=== PATIENT | female | born 1935 | race Caucasian/White ===

== ENCOUNTER 2018-05-23 06:30 | Day surgery (SDC) | payer MEDICARE, BC ==
[~2018-05-23] VITALS: Ht 167.6 cm; Wt 140.2 kg
[~2018-05-23 06:30] MED LIST: FURO40TA4 PO; POTA20TA19 PO; SENN-29 PO; ZAR2.5T PO; ZINC50TA4 PO
[2018-05-23 06:55] VITALS: BP 160/50
[2018-05-23] MEDS ORDERED: LISI-604 PO (07:09)
[2018-05-23] MEDS ORDERED: metroprolol PO (07:09)
[2018-05-23] MEDS ORDERED: ASPI-920 PO (07:09)
[2018-05-23] MEDS ORDERED: FURO40TA4 PO (07:09)
[2018-05-23] MEDS ORDERED: POTA20TA19 PO (07:09)
[2018-05-23] MEDS ORDERED: normal saline 1000ml 1,000 ML IV SCH (07:35)
[2018-05-23] MEDS ORDERED: LIDOcaine 1%/PF 5ML 10 MG/ML VIAL SQ STA (07:48)
[2018-05-23 07:53] LABS: BASOPHILS % (AUTO) 0.5 % (0-1); EOSINOPHILS # (AUTO) 0.1 X10'3 (0-0.9); HEMATOCRIT 27.4 % (35.0-45.0); HEMOGLOBIN 9.2 g/dl (12.0-16.0); LYMPHOCYTES # (AUTO) 1.1 X10'3 (1.1-4.8); LYMPHOCYTES % (AUTO) 24.6 % (21-51); MEAN CORPUSCULAR HEMOGLOBIN 32.8 PG (27.0-31.0); MEAN CORPUSCULAR HGB CONC 33.5 % (33.0-36.5); MEAN CORPUSCULAR VOLUME 97.8 FL (78-98); MEAN PLATELET VOLUME 8.9 FL (7.4-10.4); MONOCYTES # (AUTO) 0.5 X10'3 (0-0.9); NEUTROPHILS # (AUTO) 2.9 X10'3 (1.8-7.7); NEUTROPHILS % (AUTO) 60.9 % (42-75); PLATELET COUNT 159 X10'3 (140-440); RED CELL DISTRIBUTION WIDTH 14.1 % (11.5-14.5); WHITE BLOOD COUNT 4.7 X10'3 (4.5-11.0)
[2018-05-23] MEDS ORDERED: heparin 1,000 units/ml 10ml inj ICATH ONE (08:40)
[2018-05-23] MEDS ORDERED: fentaNYL/PF 50MCG/1 ML 2ML syringe IV PRN (08:40)
[2018-05-23] MEDS ORDERED: midazolam 2 mg/2 ml injection ONE (08:40)
[2018-05-23] MEDS ORDERED: LIDOcaine 1%/PF 5ML 10 MG/ML VIAL SQ ONE (08:40)
[2018-05-23] MEDS ORDERED: fentaNYL/PF 50MCG/1 ML 2ML syringe ONE (08:40)
[2018-05-23] MEDS ORDERED: midazolam 2 mg/2 ml injection IV PRN (08:40)
[2018-05-23] MEDS ORDERED: heparin 1,000unit/ml 10ml vial 10 ML ONE (09:09)
[2018-05-23] MEDS ORDERED: LIDOcaine 1%/PF 5ML 10 MG/ML VIAL ONE (09:10)
[2018-05-23 10:00] VITALS: BP 152/40
[2018-05-23 10:15] VITALS: BP 149/50
[2018-05-23 10:30] VITALS: BP 154/63
[2018-05-23 10:45] VITALS: BP 152/52
== END 2018-05-23 10:50 | disposition home or self-care (01) ==
LOC: SSTAY O 06:30
PROVIDERS: ATTEND Radiology Diagnostic Radiology
DX: I12.0 Hypertensive chronic kidney disease with stage 5 chronic kidney disease or end stage renal disease (principal); N18.5 Chronic kidney disease, stage 5; E66.9 Obesity, unspecified; G47.33 Obstructive sleep apnea (adult) (pediatric); Z99.2 Dependence on renal dialysis; Z90.89 Acquired absence of other organs; Z98.41 Cataract extraction status, right eye; Z98.42 Cataract extraction status, left eye; Z79.82 Long term (current) use of aspirin; Z79.899 Other long term (current) drug therapy; Z68.42 Body mass index [BMI] 45.0-49.9, adult
CPT/HCPCS: 36415; 36558; 76937; 77001; 85025; 99152; 99153; A9270; C1750; C1894; J1644; J2001; J2250; J3010; J7030; A4620

== ENCOUNTER 2021-12-11 07:04 | Day surgery (SDC) | payer MEDICARE, BC ==
[2021-12-11] VITALS (8 sets, daily range): BP systolic 179–195; BP diastolic 57–80
[~2021-12-11] VITALS: Ht 167.6 cm; Wt 108.0 kg
[~2021-12-11 07:04] MED LIST changes: +ASPI-920 PO; +LISI5TAB22 PO; +POTA-208 PO; -POTA20TA19 PO; -SENN-29 PO; -ZAR2.5T PO; -ZINC50TA4 PO; +metroprolol PO
[2021-12-11] MEDS ORDERED: LIDOcaine 1% 30ml preserv. free vial IJ STA (07:38)
[2021-12-11] MEDS ORDERED: albumin 25% 100mL bottle x 1 IV PRN (07:40)
[2021-12-11] MEDS ORDERED: LISI40TA13 PO (07:49)
[2021-12-11] MEDS ORDERED: FOLI0.8T7 PO (07:52)
[2021-12-11] MEDS ORDERED: lisinopril 20mg tablet PO SCH (09:00)
[2021-12-11 12:24] LABS: GLUCOSE,BODY FLUID 76 MG/DL; TOTAL PROTEIN,BODY FLUID 3.3 G/DL
[2021-12-11 12:58] LABS: LDH,BODY FLUID 91 U/L
[2021-12-11 13:19] LABS: BFAPPEAR CLOUDY
[2021-12-11 13:20] LABS: BF RBC COUNT 9675 /CU MM; BF WBC COUNT 1670 /CU MM (0-1000); BFCOLOR AMBER; BFVOLUME 58 ML
[2021-12-11 13:23] LABS: LYMPHOCYTES,BODY FLUID 97 %; MONOCYTES,BODY FLUID 2 %; NEUTROPHILS,BODY FLUID 1 %
== END 2021-12-11 10:30 | disposition home or self-care (01) ==
LOC: SSTAY O 07:04
PROVIDERS: ATTEND Preventive Medicine Aerospace Medicine
DX: J90 Pleural effusion, not elsewhere classified (principal); I12.0 Hypertensive chronic kidney disease with stage 5 chronic kidney disease or end stage renal disease; N18.6 End stage renal disease; E66.9 Obesity, unspecified; Z68.38 Body mass index [BMI] 38.0-38.9, adult; Z98.41 Cataract extraction status, right eye; Z98.42 Cataract extraction status, left eye; Z79.899 Other long term (current) drug therapy; Z99.2 Dependence on renal dialysis
CPT/HCPCS: 32555; 82945; 83615; 84157; 87070; 89051

== ENCOUNTER 2022-01-02 09:59 | Inpatient (IN) | payer MEDICARE, BC ==
[~2022-01-02] VITALS: Ht 162.6 cm; Wt 105.2 kg
[~2022-01-02 09:59] MED LIST changes: -ASPI-920 PO; +FOLI0.8T7 PO; +LISI40TA13 PO; -LISI5TAB22 PO; -metroprolol PO
[2022-01-02 12:21] LABS: BASOPHILS % (AUTO) 0.9 % (0-1); EOSINOPHILS # (AUTO) 0.2 X10'3 (0-0.9); EOSINOPHILS % (AUTO) 5.8 % (0-6); HEMATOCRIT 31.1 % (35.0-45.0); HEMOGLOBIN 10.2 g/dl (12.0-16.0); LYMPHOCYTES % (AUTO) 27.8 % (21-51); MEAN CORPUSCULAR HGB CONC 32.9 g/dL (33.0-36.5); MEAN CORPUSCULAR VOLUME 103.6 FL (78-98); MEAN PLATELET VOLUME 7.8 FL (7.4-10.4); MONOCYTES # (AUTO) 0.3 X10'3 (0-0.9); MONOCYTES % (AUTO) 9.7 % (2-12); NEUTROPHILS % (AUTO) 55.8 % (42-75); PLATELET COUNT 163 X10'3 (140-440); RED BLOOD COUNT 3.01 X10'6 (4.20-5.60); RED CELL DISTRIBUTION WIDTH 14.2 % (11.5-14.5); WHITE BLOOD COUNT 3.6 X10'3 (4.5-11.0)
[2022-01-02 12:39] LABS: ALANINE AMINOTRANSFERASE 13 U/L (12-78); ALBUMIN 2.4 G/DL (3.4-5.0); ALBUMIN/GLOBULIN RATIO 0.5 (1.1-1.5); ALKALINE PHOSPHATASE 88 IU/L (46-116); ANION GAP 10 (8-16); ASPARTATE AMINO TRANSFERASE 25 U/L (10-37); BILIRUBIN,TOTAL 0.4 MG/DL (0.1-1.0); BLOOD UREA NITROGEN 57 MG/DL (7-18); BUN/CREATININE RATIO 7.6 (6.6-38.0); CALCIUM 8.3 MG/DL (8.5-10.1); CHLORIDE 103 MMOL/L (99-107); CREATININE 7.46 MG/DL (0.40-0.90); GLUCOSE 127 MG/DL (70-104); POTASSIUM 4.5 MMOL/L (3.5-5.1); SODIUM 140 MMOL/L (135-145); TOTAL CARBON DIOXIDE 27.4 MMOL/L (24-32); TOTAL PROTEIN 6.9 G/DL (6.4-8.2); eGFR 5 ML/MIN
[2022-01-02] MEDS ORDERED: potassium Cl 20 mEq SR tablet PO PRN ×2 (13:55)
[2022-01-02] MEDS ORDERED: potassium CL 10mEq/100ml bag 100 ML IV PRN (13:55)
[2022-01-02] MEDS ORDERED: magnesium 2GM in 50ml NS 50 ML IV PRN (13:55)
[2022-01-02] MEDS ORDERED: magnesium Cl slow-release 64mg tablet PO PRN (13:55)
[2022-01-02] MEDS ORDERED: HYDROcodone/acetaminophen 10/325mg tab PO PRN (13:55)
[2022-01-02] MEDS ORDERED: mag hydrox/Alum hydrox/simeth 30ml oral suspension PO PRN (13:55)
[2022-01-02] MEDS ORDERED: PERFLUTREN PROTEIN-A MICROSPHR (Optison) 0.22 MG/ML 3ML VIAL IV ONE (13:55)
[2022-01-02] MEDS ORDERED: magnesium hydroxide 30ml (MOM) UD suspension PO PRN (13:55)
[2022-01-02] MEDS ORDERED: acetaminophen 325mg tablet PO PRN ×2 (13:55)
[2022-01-02] MEDS ORDERED: magnesium 4gm in 100ml NS 100 ML IV PRN (13:55)
[2022-01-02] MEDS ORDERED: ondansetron/PF 4mg/2ml inj IV PRN (13:55)
[2022-01-02] MEDS ORDERED: HYDROcodone/acetaminophen 5mg/325mg tablet PO PRN (13:55)
--- NOTE | 2022-01-02 14:05 | NUR ---
PT AND FAMILY UPDATED THAT PT GOING FOR THORACENTESIS SHORTLY. VERBALIZED UNDERSTANDING.
[2022-01-02 14:23] LABS: MAGNESIUM 2.3 MG/DL (1.5-2.4)
[2022-01-02 14:25] VITALS: BP 186/83
[2022-01-02 14:33] VITALS: BP 191/81
[2022-01-02 15:11] LABS: BFSOURCE RIGHT PLEURAL FLD; PLEURAL FLUID PH 7.322 (7.63-7.65)
[2022-01-02 15:39] LABS: BFAPPEAR HAZY; BFCOLOR YELLOW; EOSINOPHILS,BODY FLUID 1 %; LYMPHOCYTES,BODY FLUID 97 %; MONOCYTES,BODY FLUID 1 %; NEUTROPHILS,BODY FLUID 1 %
[2022-01-02 15:40] LABS: BF RBC COUNT 1925 /CU MM; BF WBC COUNT 600 /CU MM (0-1000); BFVOLUME 60 ML; GLUCOSE,BODY FLUID 94 MG/DL; LDH,BODY FLUID 68 U/L; TOTAL PROTEIN,BODY FLUID 2.3 G/DL
[2022-01-02] MEDS ORDERED: ERGO500054 PO (16:45)
[2022-01-02] MEDS ORDERED: FOLI0.8T7 PO (16:45)
[2022-01-02 18:00] VITALS: BP 186/82
[2022-01-02] MEDS: docusate sod 100mg capsule PO SCH (19:52)
[2022-01-02 19:53] VITALS: BP 180/86
[2022-01-02] MEDS: lisinopril 20mg tablet PO SCH (19:53)
[2022-01-02] MEDS: K and/or MAG REPLACEMENT MC SCH (19:59)
[2022-01-02] MEDS ORDERED: temazepam 15mg capsule PO PRN (21:00)
[2022-01-02 22:00] VITALS: BP 170/69
[2022-01-03] VITALS (8 sets, daily range): BP systolic 131–168; BP diastolic 49–74
[2022-01-03] MEDS ORDERED: hydrALAZINE 20mg/ml inj. IV PRN (00:10)
[2022-01-03] MEDS: folic acid/vitamin B complex w/vitamin C 0.8mg tablet PO SCH (07:02)
[2022-01-03] MEDS: docusate sod 100mg capsule PO SCH ×2 (07:03→19:41)
[2022-01-03] MEDS: lisinopril 20mg tablet PO SCH ×2 (07:03→19:42)
[2022-01-03] MEDS: K and/or MAG REPLACEMENT MC SCH ×2 (08:00→19:42)
[2022-01-03 08:04] LABS: BASOPHILS % (AUTO) 0.8 % (0-1); EOSINOPHILS # (AUTO) 0.2 X10'3 (0-0.9); EOSINOPHILS % (AUTO) 5.7 % (0-6); HEMATOCRIT 29.2 % (35.0-45.0); HEMOGLOBIN 9.8 g/dl (12.0-16.0); LYMPHOCYTES # (AUTO) 1.1 X10'3 (1.1-4.8); LYMPHOCYTES % (AUTO) 31.8 % (21-51); MEAN CORPUSCULAR HEMOGLOBIN 34.6 PG (27.0-31.0); MEAN CORPUSCULAR HGB CONC 33.7 g/dL (33.0-36.5); MEAN CORPUSCULAR VOLUME 102.8 FL (78-98); MEAN PLATELET VOLUME 8.1 FL (7.4-10.4); MONOCYTES # (AUTO) 0.4 X10'3 (0-0.9); MONOCYTES % (AUTO) 10.7 % (2-12); NEUTROPHILS # (AUTO) 1.8 X10'3 (1.8-7.7); PLATELET COUNT 162 X10'3 (140-440); RED BLOOD COUNT 2.84 X10'6 (4.20-5.60); WHITE BLOOD COUNT 3.5 X10'3 (4.5-11.0)
[2022-01-03 09:09] LABS: ALANINE AMINOTRANSFERASE 13 U/L (12-78); ALBUMIN 2.3 G/DL (3.4-5.0); ALBUMIN/GLOBULIN RATIO 0.6 (1.1-1.5); ALKALINE PHOSPHATASE 75 IU/L (46-116); ANION GAP 11 (8-16); ASPARTATE AMINO TRANSFERASE 20 U/L (10-37); BILIRUBIN,TOTAL 0.4 MG/DL (0.1-1.0); BLOOD UREA NITROGEN 58 MG/DL (7-18); BUN/CREATININE RATIO 7.4 (6.6-38.0); CALCIUM 7.8 MG/DL (8.5-10.1); CHLORIDE 104 MMOL/L (99-107); CREATININE 7.88 MG/DL (0.40-0.90); GLUCOSE 95 MG/DL (70-104); MAGNESIUM 2.3 MG/DL (1.5-2.4); POTASSIUM 4.5 MMOL/L (3.5-5.1); SODIUM 140 MMOL/L (135-145); TOTAL CARBON DIOXIDE 25.1 MMOL/L (24-32); TOTAL PROTEIN 5.9 G/DL (6.4-8.2); eGFR 5 ML/MIN
[2022-01-03] MEDS ORDERED: EPOETIN ALFA-EPBX 20,000 UNIT/ML 1 ML MDV IV ONE (10:20)
[2022-01-03] MEDS ORDERED: albumin (human) 25% 100ml IV 100 ML IV PRN (10:20)
[2022-01-03] MEDS ORDERED: heparin 1,000 units/ml 10ml inj IV ONE (10:20)
[2022-01-03] MEDS ORDERED: LIDOcaine 1% (10mg/ml) 2ml vial SQ ONE (10:20)
[2022-01-03] MEDS ORDERED: heparin 1,000unit/ml 10ml vial 10 ML IV ONE (10:20)
[2022-01-03] MEDS ORDERED: iohexol 300mg/ml 100ml inj. ONE (10:25)
--- NOTE | 2022-01-03 12:02 | NUR ---
Malnutrition consult: Pt reports 24-33 lb wt loss with decreased appetite per malnutrition risk screen with RN. Current scaled wt is -2.8 kg from scaled wt 12/11 per EMR. Per H&P pt with thoracentesis about two weeks ago and pt s/p thoracentesis this admit 01/02 with 500 mL fluid removed per report. Given thoracentesis and ESRD on HD weight is expected to fluctuate d/t changes in fluid status. Pt currently eating well on renal diet documented with 75-100% PO intake. Pt with no documented significant decrease in muscle strength though with BLE 2+ edema. Pt appears well developed well nourished per H&P. Pt currently lacks a minimum of two criteria for malnutrition. Will continue to follow and further monitor qualifying criteria for malnutrition. Addendum: 01/03/22 at [address] Amended: Links added.
--- NOTE | 2022-01-03 18:15 | NUR ---
Problems reprioritized. Patient report given to Lashon MEDINA, questions answered & plan of care reviewed with Lashon MEDINA.
[2022-01-03] MEDS: furosemide 20 MG/2 ML vial IV SCH (19:41)
[2022-01-04 02:00] VITALS: BP 140/74
[2022-01-04 06:00] VITALS: BP 136/58
[2022-01-04 07:32] LABS: BASOPHILS % (AUTO) 0.7 % (0-1); EOSINOPHILS # (AUTO) 0.2 X10'3 (0-0.9); EOSINOPHILS % (AUTO) 4.4 % (0-6); HEMATOCRIT 30.6 % (35.0-45.0); HEMOGLOBIN 10.3 g/dl (12.0-16.0); LYMPHOCYTES # (AUTO) 1.3 X10'3 (1.1-4.8); MEAN CORPUSCULAR HEMOGLOBIN 34.5 PG (27.0-31.0); MEAN CORPUSCULAR HGB CONC 33.6 g/dL (33.0-36.5); MEAN CORPUSCULAR VOLUME 102.6 FL (78-98); MEAN PLATELET VOLUME 8.1 FL (7.4-10.4); MONOCYTES # (AUTO) 0.5 X10'3 (0-0.9); NEUTROPHILS # (AUTO) 1.7 X10'3 (1.8-7.7); NEUTROPHILS % (AUTO) 46.9 % (42-75); PLATELET COUNT 165 X10'3 (140-440); RED BLOOD COUNT 2.99 X10'6 (4.20-5.60); RED CELL DISTRIBUTION WIDTH 14.1 % (11.5-14.5); WHITE BLOOD COUNT 3.7 X10'3 (4.5-11.0)
[2022-01-04 07:58] LABS: ALANINE AMINOTRANSFERASE 11 U/L (12-78); ALBUMIN 2.2 G/DL (3.4-5.0); ALBUMIN/GLOBULIN RATIO 0.6 (1.1-1.5); ALKALINE PHOSPHATASE 76 IU/L (46-116); ANION GAP 6 (8-16); ASPARTATE AMINO TRANSFERASE 24 U/L (10-37); BILIRUBIN,TOTAL 0.5 MG/DL (0.1-1.0); BLOOD UREA NITROGEN 32 MG/DL (7-18); BUN/CREATININE RATIO 6.1 (6.6-38.0); CALCIUM 7.4 MG/DL (8.5-10.1); CHLORIDE 103 MMOL/L (99-107); CREATININE 5.27 MG/DL (0.40-0.90); GLUCOSE 92 MG/DL (70-104); MAGNESIUM 2.1 MG/DL (1.5-2.4); POTASSIUM 4.5 MMOL/L (3.5-5.1); SODIUM 139 MMOL/L (135-145); TOTAL CARBON DIOXIDE 30.4 MMOL/L (24-32); TOTAL PROTEIN 6.1 G/DL (6.4-8.2); eGFR 8 ML/MIN
[2022-01-04] MEDS: docusate sod 100mg capsule PO SCH (08:00)
[2022-01-04] MEDS: folic acid/vitamin B complex w/vitamin C 0.8mg tablet PO SCH (10:07)
[2022-01-04 10:08] VITALS: BP_SYST 136
[2022-01-04] MEDS: lisinopril 20mg tablet PO SCH (10:08)
[2022-01-04] MEDS: furosemide 20 MG/2 ML vial IV SCH (10:08)
[2022-01-04] MEDS ORDERED: FURO-150 PO (11:33)
[2022-01-04] MEDS ORDERED: ergocalciferol (vit D2) capsule 50,000 UNITS (1,250mcg) CAPSULE PO SCH (17:55)
== END 2022-01-04 15:26 | disposition home or self-care (01) | DRG 186 ==
LOC: ER 10:00 → ED HOLD 13:57 → EDBEDREQ 15:16 → PCU 3S 17:25
PROVIDERS: ADMIT Family Medicine; ATTEND Family Medicine
PROC: 0W993ZZ Drainage of Right Pleural Cavity, Percutaneous Approach (ICD-10-PCS; principal; 2022-01-02)
PROC: 5A1D70Z Performance of Urinary Filtration, Intermittent, Less than 6 Hours Per Day (ICD-10-PCS; 2022-01-03)
PROC: BW251ZZ Computerized Tomography (CT Scan) of Chest, Abdomen and Pelvis using Low Osmolar Contrast (ICD-10-PCS; 2022-01-03)
DX: J91.8 Pleural effusion in other conditions classified elsewhere (principal); N18.6 End stage renal disease; I13.2 Hypertensive heart and chronic kidney disease with heart failure and with stage 5 chronic kidney disease, or end stage renal disease; D63.8 Anemia in other chronic diseases classified elsewhere; D72.819 Decreased white blood cell count, unspecified; I27.29 Other secondary pulmonary hypertension; I35.0 Nonrheumatic aortic (valve) stenosis; I50.810 Right heart failure, unspecified; R06.03 Acute respiratory distress; R63.4 Abnormal weight loss; J44.9 Chronic obstructive pulmonary disease, unspecified; K72.10 Chronic hepatic failure without coma; N83.201 Unspecified ovarian cyst, right side; Z95.0 Presence of cardiac pacemaker; Z99.2 Dependence on renal dialysis; Z99.3 Dependence on wheelchair; Z99.81 Dependence on supplemental oxygen; Z68.39 Body mass index [BMI] 39.0-39.9, adult
CPT/HCPCS: 32555; 36415; 71045; 71260; 74177; 80053; 82945; 83615; 83735; 83880; 83986; 84145; 84157; 84484; 85025; 85610; 87070; 87075; 87081; 87102; 88108; 88305; 88341; 88342; 89051; 93005; 93306; 97116; 97162; 99285; G0257; G0378; J1644; J1940; Q4081; Q9967

== ENCOUNTER 2022-02-05 06:59 | Day surgery (SDC) | payer MEDICARE, BC ==
[~2022-02-05] VITALS: Ht 157.5 cm; Wt 103.0 kg
[~2022-02-05 06:59] MED LIST changes: +ERGO500054 PO; +FURO-150 PO; -FURO40TA4 PO; +LIDOcaine 1%/PF 5ML 10 MG/ML VIAL IJ ONE; -POTA-208 PO
[2022-02-05] MEDS ORDERED: albumin 25% 100mL bottle x 1 IV PRN (07:20)
[2022-02-05] MEDS ORDERED: FURO20TA4 PO (07:27)
[2022-02-05] MEDS ORDERED: DILT-36 PO (07:27)
[2022-02-05] MEDS ORDERED: APIX2.5T PO (07:27)
[2022-02-05 07:37] VITALS: BP 142/53
[2022-02-05 08:45] VITALS: BP 167/48
[2022-02-05 08:55] VITALS: BP 151/53
[2022-02-05 09:05] VITALS: BP 147/52
[2022-02-05 09:15] VITALS: BP 147/52
[2022-02-05 09:30] VITALS: BP 161/66
== END 2022-02-05 09:40 | disposition home or self-care (01) ==
LOC: SSTAY O 06:59
PROVIDERS: ATTEND Radiology Vascular & Interventional Radiology
DX: J90 Pleural effusion, not elsewhere classified (principal); N18.6 End stage renal disease; J44.9 Chronic obstructive pulmonary disease, unspecified; I50.9 Heart failure, unspecified; Z99.2 Dependence on renal dialysis; Z95.0 Presence of cardiac pacemaker; Z79.01 Long term (current) use of anticoagulants; Z79.899 Other long term (current) drug therapy
CPT/HCPCS: 32555

== ENCOUNTER 2022-06-06 08:43 | Inpatient (IN) | payer MEDICARE, BC ==
[~2022-06-06] VITALS: Ht 167.6 cm; Wt 93.2 kg
[~2022-06-06 08:43] MED LIST changes: +APIX2.5T PO; +DILT-36 PO; -FURO-150 PO; +FURO20TA4 PO; -LIDOcaine 1%/PF 5ML 10 MG/ML VIAL IJ ONE
[2022-06-06] MEDS ORDERED: furosemide 40mg/4ml inj IV ONE (08:50)
[2022-06-06] MEDS ORDERED: methylPREDNISolone sod succ 125mg/2ml vial IV ONE (08:50)
[2022-06-06] MEDS ORDERED: albuterol 2.5 MG/3 ML nebule NEB ONE (08:50)
--- NOTE | 2022-06-06 08:55 | NUR ---
PT PLACED ON BIPAP 12/5 AND 30%
[2022-06-06 09:10] LABS: BASOPHILS % (AUTO) 0.5 % (0-1); EOSINOPHILS % (AUTO) 0.4 % (0-6); HEMATOCRIT 34.7 % (35.0-45.0); HEMOGLOBIN 11.4 g/dl (12.0-16.0); LYMPHOCYTES # (AUTO) 1.3 X10'3 (1.1-4.8); LYMPHOCYTES % (AUTO) 18.5 % (21-51); MEAN CORPUSCULAR HEMOGLOBIN 34.3 PG (27.0-31.0); MEAN CORPUSCULAR HGB CONC 32.7 g/dL (33.0-36.5); MEAN CORPUSCULAR VOLUME 104.9 FL (78-98); MEAN PLATELET VOLUME 7.8 FL (7.4-10.4); MONOCYTES # (AUTO) 0.6 X10'3 (0-0.9); MONOCYTES % (AUTO) 9.1 % (2-12); NEUTROPHILS % (AUTO) 71.5 % (42-75); PLATELET COUNT 228 X10'3 (140-440); RED BLOOD COUNT 3.31 X10'6 (4.20-5.60); RED CELL DISTRIBUTION WIDTH 14.3 % (11.5-14.5)
[2022-06-06 09:33] LABS: ALANINE AMINOTRANSFERASE 16 U/L (12-78); ALBUMIN 2.8 G/DL (3.4-5.0); ALBUMIN/GLOBULIN RATIO 0.6 (1.1-1.5); ALKALINE PHOSPHATASE 105 IU/L (46-116); ANION GAP 13 (8-16); ASPARTATE AMINO TRANSFERASE 20 U/L (10-37); BILIRUBIN,TOTAL 0.9 MG/DL (0.1-1.0); BLOOD UREA NITROGEN 80 MG/DL (7-18); BUN/CREATININE RATIO 8.5 (6.6-38.0); CALCIUM 8.9 MG/DL (8.5-10.1); CHLORIDE 101 MMOL/L (99-107); CREATININE 9.42 MG/DL (0.40-0.90); GLUCOSE 125 MG/DL (70-104); SODIUM 134 MMOL/L (135-145); TOTAL CARBON DIOXIDE 20.4 MMOL/L (24-32); TOTAL PROTEIN 7.8 G/DL (6.4-8.2); eGFR 4 ML/MIN
[2022-06-06 09:35] LABS: POTASSIUM 6.1 MMOL/L (3.5-5.1)
[2022-06-06 09:43] LABS: ABG BASE EXCESS -5.5 mmol/L (-2.0-2.0); ABG HCO3 20.6 mmol/L (22.0-26.0); ABG OXYGEN SATURATION 96.6 % (94-97); ABG PCO2 (T) 42.5 mmHg (32.0-45.0); ABG PO2 (T) 95.2 mmHg (75.0-100.0); FCOHb 0.6 % (0.0-3.9); FMetHb 0.3 % (0.0-1.5); FO2Hb 95.7 % (94-97); RESPIRATORY RATE 4 b/min; TOTAL HEMOGLOBIN 11.7 G/dl (12.0-16.0)
[2022-06-06] MEDS ORDERED: nitroGLYCERIN 1gm ointment UD TP ONE (09:55)
[2022-06-06 11:08] LABS: CLARITY,URINE SLIGHTLY CLOUDY (Clear); COLOR,URINE YELLOW (Yellow); GLUCOSE, URINE 100 mg/dl (Neg); KETONES,URINE TRACE mg/dl (Neg); LEUKOCYTE ESTERASE ,URINE SMALL (Neg); NITRITES, URINE NEGATIVE (Neg); OCCULT BLOOD,URINE MODERATE (Neg); PH,URINE 6.5 (4.8-8.0); PROTEIN,URINE 100 mg/dl (Neg); UROBILINOGEN,URINE 0.2 E.U/dL (0.2-1.0)
[2022-06-06 11:12] LABS: UA COLLECTION TYPE STRAIGHT CATH
[2022-06-06 11:14] LABS: BACTERIA,URINE FEW /HPF (Neg); MUCUS STRANDS FEW /LPF (Neg); RENAL CELLS, URINE MODERATE /HPF; SQUAMOUS EPITHELIAL CELL,UR MODERATE /LPF (FEW); TRANSITIONAL EPI CELLS,URINE FEW /HPF
[2022-06-06] MEDS ORDERED: LIDOcaine 1%/PF 5ML 10 MG/ML VIAL SQ ONE ×2 (12:35→12:45)
[2022-06-06] MEDS ORDERED: heparin 1,000 units/ml 10ml inj IV ONE (13:25)
[2022-06-06] MEDS ORDERED: heparin 1,000unit/ml 10ml vial 10 ML IV ONE (13:25)
[2022-06-06] MEDS ORDERED: ipratropium/albuterol 3ml nebule NEB PRN ×2 (13:45→13:50)
[2022-06-06] MEDS ORDERED: LIDOcaine 1% 30ml preserv. free vial IJ ONE (13:50)
[2022-06-06] MEDS ORDERED: ondansetron/PF 4mg/2ml inj IV PRN (13:50)
[2022-06-06] MEDS ORDERED: magnesium Cl slow-release 64mg tablet PO PRN (13:50)
[2022-06-06] MEDS ORDERED: HYDROcodone/acetaminophen 10/325mg tab PO PRN (13:50)
[2022-06-06] MEDS ORDERED: acetaminophen 325mg tablet PO PRN ×2 (13:50)
[2022-06-06] MEDS ORDERED: diphenhydrAMINE 25mg capsule PO PRN (13:50)
[2022-06-06] MEDS ORDERED: magnesium 4gm in 100ml NS 100 ML IV PRN (13:50)
[2022-06-06] MEDS ORDERED: mag hydrox/Alum hydrox/simeth 30ml oral suspension PO PRN (13:50)
[2022-06-06] MEDS ORDERED: magnesium 2GM in 50ml NS 50 ML IV PRN (13:50)
[2022-06-06] MEDS ORDERED: POTASSIUM BICARB 20meq eff tab 20 MEQ TABLET.EFF PO PRN ×2 (13:50)
[2022-06-06] MEDS ORDERED: HYDROcodone/acetaminophen 5mg/325mg tablet PO PRN (13:50)
[2022-06-06] MEDS ORDERED: LIDOcaine 1% W/epiNEPHrine 1:100,000 20ml vial IJ ONE (13:50)
[2022-06-06] MEDS ORDERED: morphine 2 MG/ML inj. syringe IV PRN ×2 (13:50)
[2022-06-06] MEDS ORDERED: potassium CL 10mEq/100ml bag 100 ML IV PRN (13:50)
[2022-06-06] MEDS ORDERED: bisacodyl 10mg suppository rectal RC PRN (13:50)
[2022-06-06] MEDS ORDERED: magnesium hydroxide 30ml (MOM) UD suspension PO PRN (13:50)
[2022-06-06] MEDS: methylPREDNISolone sod succ 125mg/2ml vial IV SCH ×2 (14:00→21:56)
[2022-06-06 14:11] LABS: HEMOGLOBIN A1C 5.1 % (4.5-6.2)
--- NOTE | 2022-06-06 14:23 | NUR ---
THORACENTESIS COMPLETE BY DR JACKSON AT BEDSIDE VIA ULTRASOUND. 300ML REMOVED CLEAR BONG FLUID. SAMPLE SENT TO LAB.
[2022-06-06 14:45] LABS: BFSOURCE RIGHT PLEURAL FLD; PLEURAL FLUID PH 7.642 (7.63-7.65)
[2022-06-06 14:50] LABS: GLUCOSE,BODY FLUID 99 MG/DL; LDH,BODY FLUID 66 U/L
[2022-06-06 14:51] LABS: TOTAL PROTEIN,BODY FLUID < 2.0 G/DL
[2022-06-06 15:22] LABS: BFAPPEAR HAZY; LYMPHOCYTES,BODY FLUID 96 %; MONOCYTES,BODY FLUID 3 %; NEUTROPHILS,BODY FLUID 1 %
[2022-06-06 15:23] LABS: BF RBC COUNT 1153 /CU MM; BF WBC COUNT 163 /CU MM (0-1000); BFCOLOR YELLOW; BFVOLUME 8.5 ML
[2022-06-06] MEDS ORDERED: LIDOcaine 1% (10mg/ml) 2ml vial SQ ONE (15:40)
[2022-06-06] MEDS: ipratropium/albuterol 3ml nebule NEB SCH ×2 (15:58→19:21)
--- NOTE | 2022-06-06 16:20 | NUR ---
Patient in room ED 6. I have received report from Srinivas MEDINA and had the opportunity to ask questions and awaiting patients arrival
--- NOTE | 2022-06-06 17:23 | NUR ---
patient arrived on the floor and dialysis was initiated straight away. patient is on 20L and 30% high flow. patient appears stable at this time
[2022-06-06 18:30] VITALS: BP 134/44
--- NOTE | 2022-06-06 18:57 | NUR ---
Problems reprioritized. Patient report given, questions answered & plan of care reviewed with Pat RN.
[2022-06-06] MEDS: K and/or MAG REPLACEMENT MC SCH (20:00)
[2022-06-06] MEDS: furosemide 10 MG/1 ML 10ml inj IV SCH (21:57)
[2022-06-06] MEDS: docusate sod 100mg capsule PO SCH (21:58)
[2022-06-06] MEDS: apixaban 2.5mg tablet PO SCH (21:59)
[2022-06-06 22:00] VITALS: BP 110/42
[2022-06-06] MEDS: CefTRIAXone/D5W-Rocephin 1gm 50 ML IV SCH (22:32)
[2022-06-06] MEDS: azithromycin/NS 500mg/250ml 250 ML IV SCH (23:23)
[2022-06-07 02:00] VITALS: BP 118/48
[2022-06-07] MEDS: methylPREDNISolone sod succ 125mg/2ml vial IV SCH ×4 (03:00→20:25)
[2022-06-07 06:00] VITALS: BP_SYST 115; BP_SYST 120; BP_DIAS 42; BP_DIAS 45
--- NOTE | 2022-06-07 06:45 | NUR ---
Patient in room PCU 3013B. I have received report from ADAM CUEVA and had the opportunity to ask questions and assume patient care. Addendum: 06/07/22 at 1905 by Judy Salinas RN SENIA MEDINA
--- NOTE | 2022-06-07 06:45 | NUR ---
Patient in room PCU 3013A. I have received report from ADAM PETERSON and had the opportunity to ask questions and assume patient care.
[2022-06-07] MEDS: K and/or MAG REPLACEMENT MC SCH ×2 (08:00→20:00)
[2022-06-07] MEDS: ipratropium/albuterol 3ml nebule NEB SCH ×4 (08:11→19:14)
[2022-06-07 08:37] LABS: BASOPHILS % (AUTO) 0.1 % (0-1); EOSINOPHILS % (AUTO) 0 % (0-6); HEMATOCRIT 30.3 % (35.0-45.0); LYMPHOCYTES # (AUTO) 0.2 X10'3 (1.1-4.8); LYMPHOCYTES % (AUTO) 5.2 % (21-51); MEAN CORPUSCULAR HEMOGLOBIN 34.2 PG (27.0-31.0); MEAN CORPUSCULAR HGB CONC 33.1 g/dL (33.0-36.5); MEAN CORPUSCULAR VOLUME 103.4 FL (78-98); MEAN PLATELET VOLUME 8.2 FL (7.4-10.4); MONOCYTES # (AUTO) 0.1 X10'3 (0-0.9); MONOCYTES % (AUTO) 3.1 % (2-12); NEUTROPHILS # (AUTO) 4.2 X10'3 (1.8-7.7); NEUTROPHILS % (AUTO) 91.6 % (42-75); PLATELET COUNT 197 X10'3 (140-440); RED BLOOD COUNT 2.93 X10'6 (4.20-5.60); RED CELL DISTRIBUTION WIDTH 14.4 % (11.5-14.5); WHITE BLOOD COUNT 4.6 X10'3 (4.5-11.0)
[2022-06-07 08:52] LABS: ALANINE AMINOTRANSFERASE 14 U/L (12-78); ALBUMIN 2.4 G/DL (3.4-5.0); ALBUMIN/GLOBULIN RATIO 0.5 (1.1-1.5); ALKALINE PHOSPHATASE 76 IU/L (46-116); ANION GAP 10 (8-16); ASPARTATE AMINO TRANSFERASE 19 U/L (10-37); BILIRUBIN,TOTAL 0.5 MG/DL (0.1-1.0); BLOOD UREA NITROGEN 42 MG/DL (7-18); BUN/CREATININE RATIO 7.9 (6.6-38.0); CALCIUM 8.6 MG/DL (8.5-10.1); CHLORIDE 102 MMOL/L (99-107); CHOL/HDL RATIO 2.5 (0.00-4.99); CHOLESTEROL 123 MG/DL (0-200); CREATININE 5.35 MG/DL (0.40-0.90); GLUCOSE 148 MG/DL (70-104); HDL CHOLESTEROL 49 MG/DL (35-60); LDL CHOLESTEROL 63 MG/DL (50-100); MAGNESIUM 2.2 MG/DL (1.5-2.4); PHOSPHORUS 5.4 MG/DL (2.3-4.5); POTASSIUM 4.9 MMOL/L (3.5-5.1); SODIUM 140 MMOL/L (135-145); TOTAL CARBON DIOXIDE 28.1 MMOL/L (24-32); TOTAL PROTEIN 7.3 G/DL (6.4-8.2); TRIGLYCERIDES 33 MG/DL (20-135); eGFR 8 ML/MIN
--- NOTE | 2022-06-07 08:59 | NUR ---
POSITIVE BLOOD CULTURE: GRAM POSITIVE COCCI IN CLUSTERS IN ANAEROBIC & AEROBIC BOTTLES DRAWN 06/06 FROM IV START @ 2256. DR PADGETT AWAITING CALL BACK
[2022-06-07] MEDS: docusate sod 100mg capsule PO SCH ×2 (10:41→20:25)
[2022-06-07] MEDS: apixaban 2.5mg tablet PO SCH ×2 (10:41→20:25)
[2022-06-07] MEDS: furosemide 10 MG/1 ML 10ml inj IV SCH ×2 (10:48→20:24)
[2022-06-07 11:00] VITALS: BP 125/43
[2022-06-07] MEDS ORDERED: normal saline 500ml IV soln 500 ML IV SCH (12:20)
[2022-06-07] MEDS: CefTRIAXone/D5W-Rocephin 1gm 50 ML IV SCH (12:22)
[2022-06-07] MEDS ORDERED: vancomycin/NS 1 GM ADD-VANTAGE 250 ML IV PRN (12:45)
[2022-06-07] MEDS: azithromycin/NS 500mg/250ml 250 ML IV SCH (13:56)
[2022-06-07 15:00] VITALS: BP 131/42
[2022-06-07 18:00] VITALS: BP 122/49
--- NOTE | 2022-06-07 18:10 | NUR ---
Patient in room PCU 3013. I have received report from Judy and had the opportunity to ask questions and assume patient care.
--- NOTE | 2022-06-07 19:04 | NUR ---
Problems reprioritized. Patient report given, questions answered & plan of care reviewed with ADAM CUEVA.
[2022-06-07 22:00] VITALS: BP 126/49
[2022-06-08 02:00] VITALS: BP 124/47
[2022-06-08] MEDS: methylPREDNISolone sod succ 125mg/2ml vial IV SCH ×3 (02:17→09:31)
[2022-06-08] MEDS: VANCOMYCIN LEVEL IV SCH (03:00)
[2022-06-08 06:00] VITALS: BP 126/53
--- NOTE | 2022-06-08 06:59 | NUR ---
Patient in room PCU 3013. I have received report from SANDRA MEDINA and had the opportunity to ask questions and assume patient care.
[2022-06-08] MEDS ORDERED: heparin 1,000 units/ml 10ml inj IV ONE (08:00)
[2022-06-08] MEDS ORDERED: heparin 1,000unit/ml 10ml vial 10 ML IV ONE (08:00)
[2022-06-08] MEDS: azithromycin/NS 500mg/250ml 250 ML IV SCH ×2 (08:00→13:57)
[2022-06-08] MEDS: K and/or MAG REPLACEMENT MC SCH (08:00)
[2022-06-08] MEDS: ipratropium/albuterol 3ml nebule NEB SCH ×2 (08:12→11:27)
--- NOTE | 2022-06-08 08:22 | NUR ---
Patient in room PCU 3013. I have received report from JANELLE FONG and had the opportunity to ask questions and assume patient care.
--- NOTE | 2022-06-08 08:27 | NUR ---
Problems reprioritized. Patient report given, questions answered & plan of care reviewed with LEONARDO MEDINA.
[2022-06-08] MEDS: apixaban 2.5mg tablet PO SCH (09:32)
[2022-06-08] MEDS: docusate sod 100mg capsule PO SCH (09:32)
[2022-06-08] MEDS: furosemide 10 MG/1 ML 10ml inj IV SCH (09:43)
--- NOTE | 2022-06-08 09:52 | NUR ---
AM FUROSEMIDE AND AZITHROMYCIN HELD D/T DIALYSIS.
[2022-06-08 10:19] LABS: BASOPHILS % (AUTO) 0.6 % (0-1); EOSINOPHILS % (AUTO) 0.1 % (0-6); HEMATOCRIT 31.6 % (35.0-45.0); HEMOGLOBIN 10.5 g/dl (12.0-16.0); LYMPHOCYTES # (AUTO) 0.2 X10'3 (1.1-4.8); LYMPHOCYTES % (AUTO) 3.5 % (21-51); MEAN CORPUSCULAR HGB CONC 33.1 g/dL (33.0-36.5); MEAN CORPUSCULAR VOLUME 102.6 FL (78-98); MEAN PLATELET VOLUME 8.4 FL (7.4-10.4); MONOCYTES # (AUTO) 0.1 X10'3 (0-0.9); MONOCYTES % (AUTO) 2.2 % (2-12); NEUTROPHILS # (AUTO) 5.8 X10'3 (1.8-7.7); NEUTROPHILS % (AUTO) 93.6 % (42-75); PLATELET COUNT 202 X10'3 (140-440); RED BLOOD COUNT 3.08 X10'6 (4.20-5.60); RED CELL DISTRIBUTION WIDTH 13.9 % (11.5-14.5); WHITE BLOOD COUNT 6.2 X10'3 (4.5-11.0)
[2022-06-08 10:25] LABS: ALANINE AMINOTRANSFERASE 15 U/L (12-78); ALBUMIN 2.5 G/DL (3.4-5.0); ALBUMIN/GLOBULIN RATIO 0.5 (1.1-1.5); ALKALINE PHOSPHATASE 78 IU/L (46-116); ANION GAP 11 (8-16); ASPARTATE AMINO TRANSFERASE 13 U/L (10-37); BILIRUBIN,TOTAL 0.4 MG/DL (0.1-1.0); BLOOD UREA NITROGEN 72 MG/DL (7-18); BUN/CREATININE RATIO 10.9 (6.6-38.0); CALCIUM 8.2 MG/DL (8.5-10.1); CHLORIDE 98 MMOL/L (99-107); CREATININE 6.61 MG/DL (0.40-0.90); GLUCOSE 221 MG/DL (70-104); MAGNESIUM 2.3 MG/DL (1.5-2.4); PHOSPHORUS 6.6 MG/DL (2.3-4.5); POTASSIUM 4.8 MMOL/L (3.5-5.1); SODIUM 133 MMOL/L (135-145); TOTAL CARBON DIOXIDE 24.3 MMOL/L (24-32); TOTAL PROTEIN 7.4 G/DL (6.4-8.2); eGFR 6 ML/MIN
[2022-06-08 11:00] VITALS: BP 149/67
[2022-06-08] MEDS ORDERED: vancomycin/NS 1 GM ADD-VANTAGE 250 ML IV STA (11:01)
[2022-06-08] MEDS ORDERED: vancomycin 1000 MG in NS 250ml X 1 ER IV ONE (11:15)
[2022-06-08] MEDS ORDERED: ALBU8.5H17 INH (13:13)
[2022-06-08] MEDS ORDERED: LACT1CAP26 PO (13:13)
--- NOTE | 2022-06-08 13:52 | NUR ---
PER DR OLMEDO, PT NEEDS AZITHROMYCIN DOSE THAT WAS DUE THIS AM PRIOR TO DISCHARGE, WILL ADMINISTER NOW
== END 2022-06-08 16:10 | disposition home health service (06) | DRG 640 ==
LOC: ER 08:43 → ED HOLD 13:52 → CANBEDREQ 13:59 → PCU 3S 16:38
PROVIDERS: ADMIT Family Medicine; ATTEND Family Medicine
PROC: 0W993ZZ Drainage of Right Pleural Cavity, Percutaneous Approach (ICD-10-PCS; principal; 2022-06-06)
PROC: 5A1D70Z Performance of Urinary Filtration, Intermittent, Less than 6 Hours Per Day (ICD-10-PCS; 2022-06-06)
PROC: 5A09357 Assistance with Respiratory Ventilation, Less than 24 Consecutive Hours, Continuous Positive Airway Pressure (ICD-10-PCS; 2022-06-06)
PROC: 5A0935A Assistance with Respiratory Ventilation, Less than 24 Consecutive Hours, High Flow/Velocity Cannula (ICD-10-PCS; 2022-06-06)
PROC: 5A09357 Assistance with Respiratory Ventilation, Less than 24 Consecutive Hours, Continuous Positive Airway Pressure (ICD-10-PCS; 2022-06-07)
PROC: 5A1D70Z Performance of Urinary Filtration, Intermittent, Less than 6 Hours Per Day (ICD-10-PCS; 2022-06-08)
DX: E87.5 Hyperkalemia (principal); I21.A1 Myocardial infarction type 2; J96.20 Acute and chronic respiratory failure, unspecified whether with hypoxia or hypercapnia; N18.6 End stage renal disease; I13.2 Hypertensive heart and chronic kidney disease with heart failure and with stage 5 chronic kidney disease, or end stage renal disease; J44.1 Chronic obstructive pulmonary disease with (acute) exacerbation; J91.8 Pleural effusion in other conditions classified elsewhere; E87.2 Acidosis; Z20.822 Contact with and (suspected) exposure to COVID-19; Z66 Do not resuscitate; I50.9 Heart failure, unspecified; I48.91 Unspecified atrial fibrillation; Z99.2 Dependence on renal dialysis; Z79.01 Long term (current) use of anticoagulants; Z95.0 Presence of cardiac pacemaker
CPT/HCPCS: 36415; 36600; 71045; 80053; 80061; 80202; 81001; 82803; 82945; 83036; 83605; 83615; 83735; 83880; 83986; 84100; 84157; 84484; 85018; 85025; 87040; 87070; 87075; 87077; 87088; 87186; 87502; 87503; 87635; 89051; 94640; 94660; 94760; 96374; 96375; 99285; A4353; A6402; A6449; C9803; G0257; G0378; J0456; J0696; J1644; J1940; J2930; J3370; J7030; J7040

== ENCOUNTER 2022-07-15 04:44 | Inpatient (IN) | payer MEDICARE, BC ==
[~2022-07-15] VITALS: Ht 167.6 cm; Wt 108.8 kg
[~2022-07-15 04:44] MED LIST changes: +ALBU8.5H17 INH; +LACT1CAP26 PO
[2022-07-15] MEDS ORDERED: ipratropium/albuterol 3ml nebule NEB ONE (04:55)
[2022-07-15 05:03] LABS: BASOPHILS # (AUTO) 0.1 X10'3 (0-0.2); BASOPHILS % (AUTO) 0.8 % (0-1); EOSINOPHILS # (AUTO) 0.1 X10'3 (0-0.9); EOSINOPHILS % (AUTO) 1.1 % (0-6); HEMATOCRIT 32.5 % (35.0-45.0); HEMOGLOBIN 10.5 g/dl (12.0-16.0); LYMPHOCYTES # (AUTO) 2.7 X10'3 (1.1-4.8); LYMPHOCYTES % (AUTO) 27.9 % (21-51); MEAN CORPUSCULAR HEMOGLOBIN 35.2 PG (27.0-31.0); MEAN CORPUSCULAR HGB CONC 32.5 g/dL (33.0-36.5); MEAN CORPUSCULAR VOLUME 108.2 FL (78-98); MEAN PLATELET VOLUME 7.9 FL (7.4-10.4); MONOCYTES # (AUTO) 0.7 X10'3 (0-0.9); MONOCYTES % (AUTO) 6.7 % (2-12); NEUTROPHILS # (AUTO) 6.1 X10'3 (1.8-7.7); NEUTROPHILS % (AUTO) 63.5 % (42-75); PLATELET COUNT 247 X10'3 (140-440); WHITE BLOOD COUNT 9.7 X10'3 (4.5-11.0)
[2022-07-15 05:05] LABS: ABG BASE EXCESS -8.2 mmol/L (-2.0-2.0); ABG HCO3 21.8 mmol/L (22.0-26.0); ABG PCO2 (T) 66.9 mmHg (32.0-45.0); ABG PO2 (T) 87.3 mmHg (75.0-100.0); ALLEN'S TEST POSITIVE; FCOHb 0.2 % (0.0-3.9); FLOW 15 L/min; FMetHb 0.2 % (0.0-1.5); FO2Hb 93.6 % (94-97); PATIENT TEMPERATURE 36.4; TOTAL HEMOGLOBIN 11.6 G/dl (12.0-16.0)
--- NOTE | 2022-07-15 05:08 | NUR ---
RT AT BEDSIDE INITIATING BIPAP
--- NOTE | 2022-07-15 05:14 | NUR ---
RT INITIATING BREATHING TREATMENT
[2022-07-15 05:19] LABS: ALANINE AMINOTRANSFERASE 15 U/L (12-78); ALBUMIN 3.1 G/DL (3.4-5.0); ALBUMIN/GLOBULIN RATIO 0.7 (1.1-1.5); ALKALINE PHOSPHATASE 91 IU/L (46-116); ANION GAP 10 (8-16); ASPARTATE AMINO TRANSFERASE 18 U/L (10-37); BILIRUBIN,TOTAL 0.5 MG/DL (0.1-1.0); BLOOD UREA NITROGEN 51 MG/DL (7-18); BUN/CREATININE RATIO 6.4 (6.6-38.0); CALCIUM 9.1 MG/DL (8.5-10.1); CHLORIDE 103 MMOL/L (99-107); CREATININE 7.98 MG/DL (0.40-0.90); GLUCOSE 141 MG/DL (70-104); POTASSIUM 4.9 MMOL/L (3.5-5.1); SODIUM 138 MMOL/L (135-145); TOTAL CARBON DIOXIDE 25.2 MMOL/L (24-32); TOTAL PROTEIN 7.4 G/DL (6.4-8.2); eGFR 5 ML/MIN
--- NOTE | 2022-07-15 05:34 | NUR ---
DAUGHTER NANYC CALLED # [phone]. SHE STATED PATIENT GETS FLUID BUILD UP IN LT LUNG, SHE HAD IT TAPED IT ON May. HAS NOT BEEN ABLE TO GO TO DIALYSIS THE LAST 5 SESSIONS. SHE ALSO HAS CHF.
--- NOTE | 2022-07-15 07:05 | NUR ---
RT at bedside.
[2022-07-15 07:11] LABS: ABG BASE EXCESS -6.7 mmol/L (-2.0-2.0); ABG OXYGEN SATURATION 98.6 % (94-97); ABG PCO2 (T) 45.1 mmHg (32.0-45.0); ABG PO2 (T) 148.6 mmHg (75.0-100.0); FMetHb 0.1 % (0.0-1.5); FO2Hb 98.5 % (94-97); RESPIRATORY RATE 16 b/min; TOTAL HEMOGLOBIN 10.7 G/dl (12.0-16.0)
--- NOTE | 2022-07-15 07:38 | NUR ---
Repeat ABG reviewed by Dr. Jeff. Per , would like to keep PT on bipap at this time with FIo2 decreased to 30%.
--- NOTE | 2022-07-15 08:48 | NUR ---
Spoke with Dr. Kauffman, nephrology, who is aware of the patient. Requesting Dr. Gomez contact him to discuss the patient once patient is on the floor as patient cannot have dialysis in the ED.
[2022-07-15] MEDS ORDERED: magnesium Cl slow-release 64mg tablet PO PRN (10:00)
[2022-07-15] MEDS ORDERED: HYDROcodone/acetaminophen 5mg/325mg tablet PO PRN (10:00)
[2022-07-15] MEDS ORDERED: HYDROcodone/acetaminophen 10/325mg tab PO PRN (10:00)
[2022-07-15] MEDS ORDERED: magnesium 2GM in 50ml NS 50 ML IV PRN (10:00)
[2022-07-15] MEDS ORDERED: normal saline 1000ml 1,000 ML IV SCH (10:00)
[2022-07-15] MEDS ORDERED: ondansetron/PF 4mg/2ml inj IV PRN (10:00)
[2022-07-15] MEDS ORDERED: magnesium hydroxide 30ml (MOM) UD suspension PO PRN (10:00)
[2022-07-15] MEDS ORDERED: diphenhydrAMINE 25mg capsule PO PRN (10:00)
[2022-07-15] MEDS ORDERED: potassium CL 10mEq/100ml bag 100 ML IV PRN (10:00)
[2022-07-15] MEDS ORDERED: ipratropium/albuterol 3ml nebule NEB PRN (10:00)
[2022-07-15] MEDS ORDERED: POTASSIUM BICARB 20meq eff tab 20 MEQ TABLET.EFF PO PRN ×2 (10:00)
[2022-07-15] MEDS ORDERED: acetaminophen 650mg rectal suppository RC PRN (10:00)
[2022-07-15] MEDS ORDERED: morphine 2 MG/ML inj. syringe IV PRN ×2 (10:00)
[2022-07-15] MEDS ORDERED: acetaminophen 325mg tablet PO PRN ×2 (10:00)
[2022-07-15] MEDS ORDERED: magnesium 4gm in 100ml NS 100 ML IV PRN (10:00)
[2022-07-15] MEDS ORDERED: mag hydrox/Alum hydrox/simeth 30ml oral suspension PO PRN (10:00)
[2022-07-15] MEDS ORDERED: bisacodyl 10mg suppository rectal RC PRN (10:00)
--- NOTE | 2022-07-15 11:30 | NUR ---
telephone report to Michelle Jackson.
[2022-07-15] MEDS: ipratropium/albuterol 3ml nebule NEB SCH ×4 (11:40→22:51)
--- NOTE | 2022-07-15 11:43 | NUR ---
pt had bm while changing, bert care given.
--- NOTE | 2022-07-15 11:47 | NUR ---
pt trialed off bipap, placed on 2.5L as she wears at home. Pt 100% on 2.5 L after exertion of moving around in bed for linen change. RT at bedside for breathing tx.
--- NOTE | 2022-07-15 12:16 | NUR ---
Patient is alert and oriented. She has been oriented to room and call light . In no acute distress.
--- NOTE | 2022-07-15 12:16 | NUR ---
Page Accepted promotional table spacer Message: [phone] [address]. Patient has arrived to U room 3019. Renetta @[facility] Custom Responses: promotional table spacer Transaction number: [id number]
[2022-07-15 12:17] VITALS: BP 158/58
[2022-07-15] MEDS ORDERED: EPOETIN ALFA-EPBX 20,000 UNIT/ML 1 ML MDV IV ONE (13:40)
[2022-07-15] MEDS ORDERED: FOLI1TAB34 PO (14:28)
[2022-07-15] MEDS ORDERED: SEVE800T8 PO (14:28)
[2022-07-15 15:00] VITALS: BP 143/48
--- NOTE | 2022-07-15 17:27 | NUR ---
retail sales teammate Lexie asked me to hold lasix until after dialysis.
[2022-07-15] MEDS ORDERED: heparin 1,000unit/ml 10ml vial 10 ML IV ONE (17:35)
--- NOTE | 2022-07-15 17:35 | NUR ---
NS was not running when patient came up from ED. I was hesitant to start NS due to pt being dialysis patient. I had it on for about 2 hours before it was DC. PT had minimal NS .
--- NOTE | 2022-07-15 17:43 | NUR ---
resp paged for stat ABG and bipap pt in respiratory distress after being moved around and cleaned up
[2022-07-15 18:00] VITALS: BP 136/52
[2022-07-15] MEDS ORDERED: morphine 10mg/ml inj. IV STA (18:00)
[2022-07-15 18:02] LABS: ABG BASE EXCESS -6.8 mmol/L (-2.0-2.0); ABG HCO3 21.4 mmol/L (22.0-26.0); ABG OXYGEN SATURATION 93.4 % (94-97); ABG PCO2 (T) 55.7 mmHg (32.0-45.0); ABG PO2 (T) 79.7 mmHg (75.0-100.0); FCOHb 0.4 % (0.0-3.9); FLOW 5 L/min; FMetHb 0.4 % (0.0-1.5); FO2Hb 92.7 % (94-97); TOTAL HEMOGLOBIN 11.5 G/dl (12.0-16.0)
[2022-07-15] MEDS: furosemide 10 MG/1 ML 10ml inj IV SCH ×2 (18:03→20:00)
[2022-07-15 18:08] VITALS: BP 190/71
--- NOTE | 2022-07-15 18:31 | NUR ---
Problems reprioritized. Patient report given, questions answered & plan of care reviewed with Prudence RN. PT on bipap and getting HD. morphine and lasix given. PT seems to be doing a little bit better after taking long to recover after laying patient down and applying wick before giving 80 of lasix. PT had 3 BM today and never experienced resp distress while cleaning her up . This last time was different and after turing up o2 and giving her time to recover she was not doing well. PT more stable at this time. HD in process.
--- NOTE | 2022-07-15 18:51 | NUR ---
SPOKE WITH PAT MEDINA DAY CHARGE NURSE TO HIS DISCUSSION WITH DR OLMEDO AND PT THAT SHE DESIRES CODE STATUS TO BE DNR.
[2022-07-15 18:58] LABS: ABG BASE EXCESS -4.3 mmol/L (-2.0-2.0); ABG HCO3 23.9 mmol/L (22.0-26.0); ABG OXYGEN SATURATION 96.1 % (94-97); ABG PCO2 (T) 57.5 mmHg (32.0-45.0); ABG PO2 (T) 90.7 mmHg (75.0-100.0); ALLEN'S TEST POSITIVE; FCOHb 0.6 % (0.0-3.9); FMetHb 0.3 % (0.0-1.5); FO2Hb 95.2 % (94-97); PATIENT TEMPERATURE 36.4; RESPIRATORY RATE 10 b/min; TOTAL HEMOGLOBIN 11.5 G/dl (12.0-16.0)
--- NOTE | 2022-07-15 19:10 | NUR ---
Patient in room PCU 3019. I have received report from SONDRA MEDINA and had the opportunity to ask questions and assume patient care.
[2022-07-15] MEDS ORDERED: methylPREDNISolone sod succ 125mg/2ml vial IV ONE (19:35)
[2022-07-15] MEDS: docusate sod 100mg capsule PO SCH (20:00)
[2022-07-15] MEDS ORDERED: K and/or MAG REPLACEMENT MC SCH (20:00)
[2022-07-15] MEDS: methylPREDNISolone sod succ 125mg/2ml vial IV SCH (21:32)
--- NOTE | 2022-07-15 21:37 | NUR ---
lasix scheduled for 1999 not administered due to timing. Day shift administered a little late and was too to 2000 dose. will retime for the next dose at 0200. Patient also receiving dialysis.
[2022-07-15 23:40] VITALS: BP 196/71
[2022-07-16] VITALS (8 sets, daily range): BP systolic 121–150; BP diastolic 41–64
[2022-07-16] MEDS: piperacillin/tazo 3.375gm/50ml 50 ML IV SCH ×3 (01:09→17:03)
[2022-07-16] MEDS: methylPREDNISolone sod succ 125mg/2ml vial IV SCH ×4 (02:36→20:10)
[2022-07-16] MEDS: furosemide 10 MG/1 ML 10ml inj IV SCH ×4 (02:36→20:11)
[2022-07-16] MEDS: ipratropium/albuterol 3ml nebule NEB SCH ×6 (03:08→22:21)
--- NOTE | 2022-07-16 06:38 | NUR ---
Problems reprioritized. Patient report given, questions answered & plan of care reviewed with MARI MEDINA.
[2022-07-16 06:41] LABS: BASOPHILS % (AUTO) 0.1 % (0-1); EOSINOPHILS % (AUTO) 0 % (0-6); HEMATOCRIT 29.6 % (35.0-45.0); HEMOGLOBIN 9.9 g/dl (12.0-16.0); LYMPHOCYTES # (AUTO) 0.2 X10'3 (1.1-4.8); LYMPHOCYTES % (AUTO) 3.1 % (21-51); MEAN CORPUSCULAR HGB CONC 33.4 g/dL (33.0-36.5); MEAN CORPUSCULAR VOLUME 104.9 FL (78-98); MEAN PLATELET VOLUME 7.5 FL (7.4-10.4); MONOCYTES # (AUTO) 0.1 X10'3 (0-0.9); MONOCYTES % (AUTO) 1.5 % (2-12); NEUTROPHILS # (AUTO) 5.1 X10'3 (1.8-7.7); NEUTROPHILS % (AUTO) 95.3 % (42-75); PLATELET COUNT 204 X10'3 (140-440); RED BLOOD COUNT 2.82 X10'6 (4.20-5.60); RED CELL DISTRIBUTION WIDTH 15.3 % (11.5-14.5); WHITE BLOOD COUNT 5.4 X10'3 (4.5-11.0)
--- NOTE | 2022-07-16 07:07 | NUR ---
Patient in room PCU 3019. I have received report from ADAM Delong and had the opportunity to ask questions and assume patient care.
[2022-07-16 07:16] LABS: ALANINE AMINOTRANSFERASE 14 U/L (12-78); ALBUMIN 2.6 G/DL (3.4-5.0); ALBUMIN/GLOBULIN RATIO 0.6 (1.1-1.5); ALKALINE PHOSPHATASE 74 IU/L (46-116); ANION GAP 11 (8-16); ASPARTATE AMINO TRANSFERASE 24 U/L (10-37); BILIRUBIN,TOTAL 0.7 MG/DL (0.1-1.0); BLOOD UREA NITROGEN 25 MG/DL (7-18); BUN/CREATININE RATIO 5.3 (6.6-38.0); CALCIUM 8.5 MG/DL (8.5-10.1); CHLORIDE 100 MMOL/L (99-107); CHOL/HDL RATIO 2.9 (0.00-4.99); CHOLESTEROL 138 MG/DL (0-200); CREATININE 4.68 MG/DL (0.40-0.90); GLUCOSE 141 MG/DL (70-104); HDL CHOLESTEROL 48 MG/DL (35-60); LDL CHOLESTEROL 72 MG/DL (50-100); MAGNESIUM 2.1 MG/DL (1.5-2.4); PHOSPHORUS 4.5 MG/DL (2.3-4.5); POTASSIUM 5.4 MMOL/L (3.5-5.1); SODIUM 138 MMOL/L (135-145); TOTAL CARBON DIOXIDE 27.4 MMOL/L (24-32); TOTAL PROTEIN 7.1 G/DL (6.4-8.2); TRIGLYCERIDES 56 MG/DL (20-135); eGFR 9 ML/MIN
[2022-07-16] MEDS: docusate sod 100mg capsule PO SCH ×2 (08:00→19:51)
[2022-07-16] MEDS ORDERED: LIDOcaine 1%/PF 5ML 10 MG/ML VIAL ONE (10:51)
[2022-07-16 12:18] LABS: BFSOURCE RIGHT PLEURAL FLD
[2022-07-16 12:56] LABS: LYMPHOCYTES,BODY FLUID 97 %; MONOCYTES,BODY FLUID 2 %; NEUTROPHILS,BODY FLUID 1 %
[2022-07-16 12:57] LABS: BF WBC COUNT 109 /CU MM (0-1000); BFAPPEAR CLOUDY; BFCOLOR YELLOW; BFVOLUME 51 ML
[2022-07-16 12:58] LABS: BF RBC COUNT 1025 /CU MM
[2022-07-16 13:06] LABS: GLUCOSE,BODY FLUID 123 MG/DL; LDH,BODY FLUID 64 U/L
[2022-07-16 13:34] LABS: TOTAL PROTEIN,BODY FLUID < 2.0 G/DL
--- NOTE | 2022-07-16 15:34 | NUR ---
Message: ADAM Monte, [facility] 5441, re: 3019A, Fabian, Pt does NOT want to be a DNR. Please address, thank you Transaction number: [id number]
--- NOTE | 2022-07-16 16:46 | NUR ---
Spoke with Dr Gomez, requested this RN speak with daughter, Carolina. Spoke with Carolina, she will talk with patient and call back.
--- NOTE | 2022-07-16 18:49 | NUR ---
Problems reprioritized. Patient report given, questions answered & plan of care reviewed with ADAM Delong.
--- NOTE | 2022-07-16 19:25 | NUR ---
Patient in room PCU 3019. I have received report from MARI MEDINA and had the opportunity to ask questions and assume patient care.
[2022-07-16] MEDS: apixaban 2.5mg tablet PO SCH (19:51)
--- NOTE | 2022-07-16 23:35 | NUR ---
I observed Nirmal BRADSHAW administer medications and have reviewed his charting Gurjit Villa RN
--- NOTE | 2022-07-16 23:38 | NUR ---
With regard to 1999 physical assessment: V paced was charted in error. Justin BRADSHAW.
[2022-07-17 02:00] VITALS: BP 112/44
[2022-07-17] MEDS: ipratropium/albuterol 3ml nebule NEB SCH ×6 (02:48→23:03)
[2022-07-17] MEDS: methylPREDNISolone sod succ 125mg/2ml vial IV SCH ×4 (02:52→21:20)
[2022-07-17] MEDS: furosemide 10 MG/1 ML 10ml inj IV SCH ×4 (02:53→21:21)
--- NOTE | 2022-07-17 06:28 | NUR ---
Problems reprioritized. Patient report given, questions answered & plan of care reviewed with WINSTON MEDINA.
[2022-07-17 06:46] VITALS: BP 126/44
[2022-07-17 07:04] LABS: BASOPHILS % (AUTO) 0.1 % (0-1); EOSINOPHILS % (AUTO) 0 % (0-6); HEMOGLOBIN 9.4 g/dl (12.0-16.0); LYMPHOCYTES # (AUTO) 0.3 X10'3 (1.1-4.8); LYMPHOCYTES % (AUTO) 5.3 % (21-51); MEAN CORPUSCULAR HEMOGLOBIN 35.4 PG (27.0-31.0); MEAN CORPUSCULAR HGB CONC 33.8 g/dL (33.0-36.5); MEAN CORPUSCULAR VOLUME 104.9 FL (78-98); MONOCYTES # (AUTO) 0.2 X10'3 (0-0.9); MONOCYTES % (AUTO) 3.8 % (2-12); NEUTROPHILS # (AUTO) 5.4 X10'3 (1.8-7.7); NEUTROPHILS % (AUTO) 90.8 % (42-75); PLATELET COUNT 189 X10'3 (140-440); RED BLOOD COUNT 2.67 X10'6 (4.20-5.60); RED CELL DISTRIBUTION WIDTH 15.2 % (11.5-14.5); WHITE BLOOD COUNT 5.9 X10'3 (4.5-11.0)
[2022-07-17 07:28] LABS: ALANINE AMINOTRANSFERASE 13 U/L (12-78); ALBUMIN 2.5 G/DL (3.4-5.0); ALBUMIN/GLOBULIN RATIO 0.6 (1.1-1.5); ALKALINE PHOSPHATASE 62 IU/L (46-116); ANION GAP 13 (8-16); ASPARTATE AMINO TRANSFERASE 14 U/L (10-37); BILIRUBIN,TOTAL 0.5 MG/DL (0.1-1.0); BLOOD UREA NITROGEN 52 MG/DL (7-18); BUN/CREATININE RATIO 8.2 (6.6-38.0); CALCIUM 8.3 MG/DL (8.5-10.1); CHLORIDE 96 MMOL/L (99-107); CREATININE 6.36 MG/DL (0.40-0.90); GLUCOSE 175 MG/DL (70-104); MAGNESIUM 2.2 MG/DL (1.5-2.4); PHOSPHORUS 4.6 MG/DL (2.3-4.5); POTASSIUM 5.4 MMOL/L (3.5-5.1); SODIUM 135 MMOL/L (135-145); TOTAL CARBON DIOXIDE 26.3 MMOL/L (24-32); TOTAL PROTEIN 6.6 G/DL (6.4-8.2); eGFR 6 ML/MIN
[2022-07-17] MEDS: lisinopril 20mg tablet PO SCH (08:00)
[2022-07-17] MEDS: apixaban 2.5mg tablet PO SCH ×2 (08:00→21:18)
[2022-07-17] MEDS: sevelamer carbonate 800mg tablet PO SCH ×3 (08:39→18:45)
[2022-07-17] MEDS: folic acid/vitamin B complex w/vitamin C 0.8mg tablet PO SCH (08:40)
[2022-07-17] MEDS: docusate sod 100mg capsule PO SCH ×2 (08:40→21:18)
[2022-07-17] MEDS: diltiazem CD 180mg cap (once-daily) PO SCH (08:41)
[2022-07-17] MEDS: piperacillin/tazo 3.375gm/50ml 50 ML IV SCH ×2 (08:43→21:22)
[2022-07-17] MEDS ORDERED: heparin 1,000unit/ml 10ml vial 10 ML IV ONE (10:40)
[2022-07-17] MEDS ORDERED: EPOETIN ALFA-EPBX 20,000 UNIT/ML 1 ML MDV IV ONE (10:40)
[2022-07-17] MEDS ORDERED: normal saline 1000ml 250 ML IV PRN (10:40)
[2022-07-17 11:00] VITALS: BP 132/52
--- NOTE | 2022-07-17 12:08 | NUR ---
PAGER ID: [phone] MESSAGE: Kalie Peralta [id number] Pt. wants to be full code please. Please change code status thank you Ximena [id number]
[2022-07-17 15:00] VITALS: BP 119/69
[2022-07-17 18:00] VITALS: BP 102/57
--- NOTE | 2022-07-17 18:40 | NUR ---
Report given to Kendal Griffith RN.
[2022-07-17 22:00] VITALS: BP 109/36
[2022-07-18] MEDS: methylPREDNISolone sod succ 125mg/2ml vial IV SCH ×3 (01:56→14:10)
[2022-07-18] MEDS: furosemide 10 MG/1 ML 10ml inj IV SCH ×3 (01:56→14:00)
[2022-07-18 02:00] VITALS: BP 117/46
[2022-07-18] MEDS: ipratropium/albuterol 3ml nebule NEB SCH ×4 (03:05→15:47)
[2022-07-18 06:00] VITALS: BP 103/45
--- NOTE | 2022-07-18 06:13 | NUR ---
Report given back to ADAM Grey. Questions answered. Pt in no acute distress at time of handoff.
[2022-07-18 06:22] LABS: BASOPHILS % (AUTO) 0 % (0-1); EOSINOPHILS % (AUTO) 0 % (0-6); HEMATOCRIT 29.7 % (35.0-45.0); HEMOGLOBIN 10.1 g/dl (12.0-16.0); LYMPHOCYTES # (AUTO) 0.2 X10'3 (1.1-4.8); LYMPHOCYTES % (AUTO) 3.4 % (21-51); MEAN CORPUSCULAR HEMOGLOBIN 35.3 PG (27.0-31.0); MEAN CORPUSCULAR HGB CONC 33.9 g/dL (33.0-36.5); MEAN CORPUSCULAR VOLUME 104.2 FL (78-98); MONOCYTES # (AUTO) 0.2 X10'3 (0-0.9); MONOCYTES % (AUTO) 3.4 % (2-12); NEUTROPHILS # (AUTO) 6.7 X10'3 (1.8-7.7); NEUTROPHILS % (AUTO) 93.2 % (42-75); PLATELET COUNT 210 X10'3 (140-440); RED BLOOD COUNT 2.85 X10'6 (4.20-5.60); RED CELL DISTRIBUTION WIDTH 15.1 % (11.5-14.5); WHITE BLOOD COUNT 7.2 X10'3 (4.5-11.0)
[2022-07-18 06:27] LABS: ALANINE AMINOTRANSFERASE 15 U/L (12-78); ALBUMIN 2.5 G/DL (3.4-5.0); ALBUMIN/GLOBULIN RATIO 0.6 (1.1-1.5); ALKALINE PHOSPHATASE 58 IU/L (46-116); ANION GAP 12 (8-16); ASPARTATE AMINO TRANSFERASE 16 U/L (10-37); BILIRUBIN,TOTAL 0.4 MG/DL (0.1-1.0); BLOOD UREA NITROGEN 36 MG/DL (7-18); BUN/CREATININE RATIO 8.8 (6.6-38.0); CALCIUM 7.8 MG/DL (8.5-10.1); CHLORIDE 100 MMOL/L (99-107); CREATININE 4.09 MG/DL (0.40-0.90); GLUCOSE 180 MG/DL (70-104); MAGNESIUM 1.9 MG/DL (1.5-2.4); PHOSPHORUS 3.6 MG/DL (2.3-4.5); POTASSIUM 4.6 MMOL/L (3.5-5.1); SODIUM 141 MMOL/L (135-145); TOTAL PROTEIN 6.5 G/DL (6.4-8.2); eGFR 10 ML/MIN
--- NOTE | 2022-07-18 06:43 | NUR ---
1800 Got report from ADAM Grey. Pt resting in bed. Pt had uneventful night. Pt not in pain.
[2022-07-18] MEDS: lisinopril 20mg tablet PO SCH (08:00)
[2022-07-18] MEDS: folic acid/vitamin B complex w/vitamin C 0.8mg tablet PO SCH (08:27)
[2022-07-18] MEDS: diltiazem CD 180mg cap (once-daily) PO SCH (08:29)
[2022-07-18] MEDS: docusate sod 100mg capsule PO SCH (08:29)
[2022-07-18] MEDS: sevelamer carbonate 800mg tablet PO SCH ×2 (08:29→14:10)
[2022-07-18] MEDS: apixaban 2.5mg tablet PO SCH (08:29)
[2022-07-18] MEDS: piperacillin/tazo 3.375gm/50ml 50 ML IV SCH (08:29)
[2022-07-18 11:00] VITALS: BP 105/42
--- NOTE | 2022-07-18 11:37 | NUR ---
Pt. states she will refuse PT unless she has her own walker. Daughter contacted and is bringing her walker. PT. paged.
--- NOTE | 2022-07-18 12:09 | NUR ---
Paged CM. Family very concerned about having home health and home PT set up already before DC. States they were promised last time and it was never set up.
--- NOTE | 2022-07-18 13:45 | NUR ---
PAGER ID: [phone] MESSAGE: Kalie STAR [phone] PT evaluated pt. and she transfers and even walks ok with her own walker. Ok to go home. Daughter here now wanting to p/u pt. Discharge?? Ximena [phone]
[2022-07-18 15:00] VITALS: BP 108/42
[2022-07-18] MEDS ORDERED: FURO40TA4 PO (15:29)
--- NOTE | 2022-07-18 16:40 | NUR ---
DISCHARGE NOTE: Reviewed discharge paperwork with daughter and pt. Reviewed discharge medications and possible ASE. Pt. knows f/u care. PIV DC"D. Tele removed and returned.
== END 2022-07-18 16:46 | disposition home health service (06) | DRG 189 ==
LOC: ER 04:45 → ED HOLD 10:02 → PCU 3S 12:21
PROVIDERS: ADMIT Family Medicine; ATTEND Family Medicine
PROC: 5A1D70Z Performance of Urinary Filtration, Intermittent, Less than 6 Hours Per Day (ICD-10-PCS; principal; 2022-07-15)
PROC: 5A09357 Assistance with Respiratory Ventilation, Less than 24 Consecutive Hours, Continuous Positive Airway Pressure (ICD-10-PCS; 2022-07-15)
PROC: 0W993ZZ Drainage of Right Pleural Cavity, Percutaneous Approach (ICD-10-PCS; 2022-07-16)
PROC: 5A09357 Assistance with Respiratory Ventilation, Less than 24 Consecutive Hours, Continuous Positive Airway Pressure (ICD-10-PCS; 2022-07-16)
PROC: 5A1D70Z Performance of Urinary Filtration, Intermittent, Less than 6 Hours Per Day (ICD-10-PCS; 2022-07-17)
PROC: 5A09357 Assistance with Respiratory Ventilation, Less than 24 Consecutive Hours, Continuous Positive Airway Pressure (ICD-10-PCS; 2022-07-17)
PROC: 5A09357 Assistance with Respiratory Ventilation, Less than 24 Consecutive Hours, Continuous Positive Airway Pressure (ICD-10-PCS; 2022-07-18)
DX: J96.20 Acute and chronic respiratory failure, unspecified whether with hypoxia or hypercapnia (principal); I21.A1 Myocardial infarction type 2; I50.33 Acute on chronic diastolic (congestive) heart failure; N18.6 End stage renal disease; I13.2 Hypertensive heart and chronic kidney disease with heart failure and with stage 5 chronic kidney disease, or end stage renal disease; E87.2 Acidosis; I48.20 Chronic atrial fibrillation, unspecified; J44.1 Chronic obstructive pulmonary disease with (acute) exacerbation; Z66 Do not resuscitate; Z20.822 Contact with and (suspected) exposure to COVID-19; D63.8 Anemia in other chronic diseases classified elsewhere; E66.01 Morbid (severe) obesity due to excess calories; Z68.38 Body mass index [BMI] 38.0-38.9, adult; Z79.01 Long term (current) use of anticoagulants; Z79.899 Other long term (current) drug therapy; Z95.0 Presence of cardiac pacemaker; Z91.19 Patient's noncompliance with other medical treatment and regimen
CPT/HCPCS: 32555; 36415; 36600; 71045; 71250; 80053; 80061; 82803; 82945; 83036; 83605; 83615; 83735; 83880; 83986; 84100; 84157; 84484; 85018; 85025; 85379; 87040; 87070; 87081; 87635; 89051; 93005; 94640; 94660; 94760; 96360; 97116; 97162; 97530; 99285; A4615; A6449; C9803; G0257; G0378; J1644; J1940; J2274; J2543; J2930; J3490; J7030; Q4081

== ENCOUNTER 2022-11-05 07:14 | Day surgery (SDC) | payer MEDICARE, BC ==
[~2022-11-05] VITALS: Ht 167.6 cm; Wt 101.4 kg
[2022-11-05] VITALS (9 sets, daily range): BP systolic 100–138; BP diastolic 31–83
[~2022-11-05 07:14] MED LIST changes: -FOLI0.8T7 PO; +FOLI1TAB34 PO; -FURO20TA4 PO; +FURO40TA4 PO; -LACT1CAP26 PO; +SEVE800T8 PO
[2022-11-05] MEDS ORDERED: LIDOcaine 1% 30ml preserv. free vial IJ STA (08:01)
== END 2022-11-05 10:40 | disposition home or self-care (01) ==
LOC: SSTAY O 07:14
PROVIDERS: ATTEND Radiology Vascular & Interventional Radiology
DX: J90 Pleural effusion, not elsewhere classified (principal); N18.6 End stage renal disease; J44.9 Chronic obstructive pulmonary disease, unspecified; I11.0 Hypertensive heart disease with heart failure; I48.91 Unspecified atrial fibrillation; Z95.0 Presence of cardiac pacemaker; Z79.899 Other long term (current) drug therapy; Z98.890 Other specified postprocedural states
CPT/HCPCS: 32555; A4615

== ENCOUNTER 2023-01-12 11:12 | Outpatient (CLI) | payer MEDICARE, BC ==
[~2023-01-12 11:12] MED LIST changes: -ALBU8.5H17 INH; +FURO-150 PO; -FURO40TA4 PO; +PRED20TA PO; -SEVE800T8 PO
== END 2023-01-12 23:59 | disposition home or self-care (01) ==
LOC: RAD 11:12
PROVIDERS: ATTEND Internal Medicine Critical Care Medicine
DX: I08.8 Other rheumatic multiple valve diseases (principal)
CPT/HCPCS: 93306

== ENCOUNTER 2023-03-09 11:38 | Day surgery (SDC) | payer MEDICARE, BC ==
[2023-03-08 16:33] LABS: BASOPHILS % (AUTO) 0.7 % (0-1); EOSINOPHILS # (AUTO) 0.1 X10'3 (0-0.9); EOSINOPHILS % (AUTO) 1.1 % (0-6); HEMATOCRIT 37.2 % (35.0-45.0); HEMOGLOBIN 12.4 g/dl (12.0-16.0); LYMPHOCYTES # (AUTO) 1.5 X10'3 (1.1-4.8); LYMPHOCYTES % (AUTO) 28.6 % (21-51); MEAN CORPUSCULAR HGB CONC 33.2 g/dL (33.0-36.5); MEAN CORPUSCULAR VOLUME 105.2 FL (78-98); MEAN PLATELET VOLUME 7.8 FL (7.4-10.4); MONOCYTES # (AUTO) 0.4 X10'3 (0-0.9); MONOCYTES % (AUTO) 7.7 % (2-12); NEUTROPHILS # (AUTO) 3.2 X10'3 (1.8-7.7); NEUTROPHILS % (AUTO) 61.9 % (42-75); PLATELET COUNT 232 X10'3 (140-440); RED BLOOD COUNT 3.54 X10'6 (4.20-5.60); RED CELL DISTRIBUTION WIDTH 13.6 % (11.5-14.5); WHITE BLOOD COUNT 5.2 X10'3 (4.5-11.0)
[2023-03-08 16:42] LABS: APTT 33 SECONDS (22-32)
[2023-03-08 16:47] LABS: ALBUMIN 2.9 G/DL (3.4-5.0); ANION GAP 10 (8-16); BLOOD UREA NITROGEN 23 MG/DL (7-18); BUN/CREATININE RATIO 5.8 (10.0-20.0); CALCIUM 9.5 MG/DL (8.5-10.1); CHLORIDE 99 MMOL/L (99-107); CHOL/HDL RATIO 2.6 (0.00-4.99); CHOLESTEROL 135 MG/DL (0-200); GLUCOSE 110 MG/DL (70-104); HDL CHOLESTEROL 52 MG/DL (35-60); LDL CHOLESTEROL 69 MG/DL (50-100); SODIUM 138 MMOL/L (135-145); TRIGLYCERIDES 59 MG/DL (20-135); eGFR 11 ML/MIN
[2023-03-09] VITALS (8 sets, daily range): BP systolic 116–147; BP diastolic 43–59
[~2023-03-09] VITALS: Ht 167.6 cm; Wt 97.7 kg
[2023-03-09] MEDS ORDERED: LORazepam 0.5 MG tablet PO PRN (12:00)
[2023-03-09] MEDS ORDERED: normal saline 1,000 ML IV SCH (12:00)
[2023-03-09] MEDS ORDERED: diphenhydrAMINE 25mg capsule PO PRN (12:00)
[2023-03-09] MEDS ORDERED: NO HOME MEDS (12:32)
[2023-03-09] MEDS ORDERED: midazolam 1 mg/ML 2ml injection ONE (12:49)
[2023-03-09] MEDS ORDERED: nitroGLYCERIN-Tridil 50MG/D5W 250 ML IV ONE (12:49)
[2023-03-09] MEDS ORDERED: verapamil 2.5 mg/ml inj IV ONE (12:49)
[2023-03-09] MEDS ORDERED: fentaNYL/PF 50MCG/1 ML 2ML syringe ONE (12:49)
[2023-03-09] MEDS ORDERED: iohexol 350 MG/ML 50ML vial IV ONE (12:50)
[2023-03-09] MEDS ORDERED: LIDOcaine 1% (10mg/ml) 2ml vial ONE ×2 (12:50→13:57)
[2023-03-09] MEDS ORDERED: heparin 1,000unit/ml 10ml vial 10 ML ONE (12:50)
[2023-03-09] MEDS ORDERED: iohexol 350MG/ML 100ml bottle IV ONE (12:50)
[2023-03-09] MEDS ORDERED: LIDOcaine 1% 30ml preserv. free vial ONE (14:15)
[2023-03-09] MEDS ORDERED: LIDOcaine 2 gm/250ml D5W 250 ML IV ONE (14:16)
[2023-03-09 14:38] LABS: ISTAT HGB ART 11.2 g/dl (12.0-16.0); ISTAT Hct ART 33 %PCV (35-45); ISTAT O2 SATURATION ARTERIAL 93 % (95-98); ISTAT SOURCE ART
[2023-03-09 15:25] LABS: ISTAT Hct MIX 36 %PCV (35-45); ISTAT O2 SATURATION MIX VENOUS 66 % (60-80); ISTAT SOURCE VEN
[2023-03-09] MEDS ORDERED: HYDROcodone/acetaminophen 5mg/325mg tablet PO PRN (15:25)
[2023-03-09] MEDS ORDERED: HYDROcodone/acetaminophen 10/325mg tab PO PRN (15:25)
== END 2023-03-09 18:15 | disposition home or self-care (01) ==
LOC: SSTAY O 11:38
PROVIDERS: ATTEND Student in an Organized Health Care Education/Training Program
DX: I35.0 Nonrheumatic aortic (valve) stenosis (principal); I25.10 Atherosclerotic heart disease of native coronary artery without angina pectoris; I27.20 Pulmonary hypertension, unspecified; G47.33 Obstructive sleep apnea (adult) (pediatric); E78.5 Hyperlipidemia, unspecified; I12.0 Hypertensive chronic kidney disease with stage 5 chronic kidney disease or end stage renal disease; N18.6 End stage renal disease; I48.91 Unspecified atrial fibrillation; M12.9 Arthropathy, unspecified; I65.23 Occlusion and stenosis of bilateral carotid arteries; E66.9 Obesity, unspecified; Z68.34 Body mass index [BMI] 34.0-34.9, adult; Z86.73 Personal history of transient ischemic attack (TIA), and cerebral infarction without residual deficits; Z95.0 Presence of cardiac pacemaker; Z79.899 Other long term (current) drug therapy
CPT/HCPCS: 36415; 80048; 80061; 82803; 85014; 85025; 85610; 85730; 93005; 93456; C1760; C1894; J1644; J2001; J3490; J7030; Q9967; A6258; C1751; J2250; J3010

== ENCOUNTER 2023-04-16 10:29 | Outpatient (CLI) | payer MEDICARE, BC ==
[~2023-04-16 10:29] MED LIST changes: -APIX2.5T PO; -DILT-36 PO; -ERGO500054 PO; -FOLI1TAB34 PO; -FURO-150 PO; -LISI40TA13 PO; +NO HOME MEDS; -PRED20TA PO
[2023-04-16 11:08] LABS: BASOPHILS % (AUTO) 0.8 % (0-1); EOSINOPHILS # (AUTO) 0.1 X10'3 (0-0.9); HEMOGLOBIN 12.1 g/dl (12.0-16.0); LYMPHOCYTES # (AUTO) 1.1 X10'3 (1.1-4.8); MONOCYTES # (AUTO) 0.4 X10'3 (0-0.9); NEUTROPHILS # (AUTO) 2.6 X10'3 (1.8-7.7)
[2023-04-16 11:09] LABS: EOSINOPHILS % (AUTO) 2.1 % (0-6); HEMATOCRIT 36.4 % (35.0-45.0); LYMPHOCYTES % (AUTO) 25.2 % (21-51); MEAN CORPUSCULAR HEMOGLOBIN 34.7 PG (27.0-31.0); MEAN CORPUSCULAR HGB CONC 33.2 g/dL (33.0-36.5); MEAN CORPUSCULAR VOLUME 104.4 FL (78-98); NEUTROPHILS % (AUTO) 61.9 % (42-75); PLATELET COUNT 192 X10'3 (140-440); RED BLOOD COUNT 3.49 X10'6 (4.20-5.60); RED CELL DISTRIBUTION WIDTH 14.2 % (11.5-14.5); WHITE BLOOD COUNT 4.3 X10'3 (4.5-11.0)
[2023-04-16 11:19] LABS: APTT 31 SECONDS (22-32)
[2023-04-16 11:28] LABS: ALANINE AMINOTRANSFERASE 11 U/L (12-78); ALBUMIN 2.9 G/DL (3.4-5.0); ALBUMIN/GLOBULIN RATIO 0.8 (1.1-1.5); ALKALINE PHOSPHATASE 94 IU/L (46-116); ANION GAP 4 (8-16); ASPARTATE AMINO TRANSFERASE 19 U/L (10-37); BILIRUBIN,TOTAL 0.4 MG/DL (0.1-1.0); BLOOD UREA NITROGEN 41 MG/DL (7-18); BUN/CREATININE RATIO 6.1 (10.0-20.0); CALCIUM 9.3 MG/DL (8.5-10.1); CHLORIDE 98 MMOL/L (99-107); CREATININE 6.77 MG/DL (0.40-0.90); GLUCOSE 147 MG/DL (70-104); POTASSIUM 3.9 MMOL/L (3.5-5.1); SODIUM 137 MMOL/L (135-145); TOTAL CARBON DIOXIDE 34.9 MMOL/L (24-32); TOTAL PROTEIN 6.7 G/DL (6.4-8.2); eGFR 6 ML/MIN
[2023-04-16] MEDS ORDERED: IODIXANOL 320 MG/ML INFUS..BTL 100ML IV ONE (11:46)
[2023-04-16 13:06] LABS: ABG BASE EXCESS 3.6 mmol/L (-2.0-2.0); ABG HCO3 29.1 mmol/L (22.0-26.0); ABG OXYGEN SATURATION 93.2 % (94-97); ABG PCO2 (T) 47.8 mmHg (32.0-45.0); ABG PO2 (T) 68.7 mmHg (75.0-100.0); ALLEN'S TEST POSITIVE; FCOHb 0.9 % (0.0-3.9); FMetHb 0.2 % (0.0-1.5); FO2Hb 92.2 % (94-97); TOTAL HEMOGLOBIN 13.3 G/dl (12.0-16.0)
[2023-04-16] MEDS ORDERED: albuterol 2.5 MG/3 ML nebule NEB ONE (13:45)
== END 2023-04-16 23:59 | disposition home or self-care (01) ==
LOC: RAD 10:29
PROVIDERS: ATTEND Internal Medicine Cardiovascular Disease
DX: J90 Pleural effusion, not elsewhere classified (principal); I35.0 Nonrheumatic aortic (valve) stenosis; R06.02 Shortness of breath; I65.29 Occlusion and stenosis of unspecified carotid artery; I51.7 Cardiomegaly; I70.0 Atherosclerosis of aorta; J43.9 Emphysema, unspecified; J98.11 Atelectasis; R94.2 Abnormal results of pulmonary function studies
CPT/HCPCS: 36600; 71046; 71275; 74174; 80053; 82803; 83880; 85018; 85025; 85610; 85730; 94060; 94727; 94729; 94760; J3490; Q9967

== ENCOUNTER 2023-05-27 08:22 | Inpatient (IN) | payer MEDICARE, BC ==
[2023-05-20 15:57] LABS: BASOPHILS % (AUTO) 0.9 % (0-1); EOSINOPHILS # (AUTO) 0.1 X10'3 (0-0.9); EOSINOPHILS % (AUTO) 2.1 % (0-6); LYMPHOCYTES # (AUTO) 1.1 X10'3 (1.1-4.8); LYMPHOCYTES % (AUTO) 20.4 % (21-51); MEAN CORPUSCULAR HEMOGLOBIN 33.9 PG (27.0-31.0); MEAN CORPUSCULAR HGB CONC 32.8 g/dL (33.0-36.5); MEAN CORPUSCULAR VOLUME 103.4 FL (78-98); MEAN PLATELET VOLUME 8.5 FL (7.4-10.4); MONOCYTES # (AUTO) 0.5 X10'3 (0-0.9); MONOCYTES % (AUTO) 9.1 % (2-12); NEUTROPHILS # (AUTO) 3.7 X10'3 (1.8-7.7); NEUTROPHILS % (AUTO) 67.5 % (42-75); PRE OP HEMATOCRIT 38.9 % (35.0-45.0); PRE OP HEMOGLOBIN 12.8 g/dL (12.0-16.0); PRE OP PLATELET COUNT 223 X10'3 (140-440); RED BLOOD COUNT 3.77 X10'6 (4.20-5.60); RED CELL DISTRIBUTION WIDTH 14.7 % (11.5-14.5)
[2023-05-20 16:07] LABS: PRE OP PROTIME 10.6 SECONDS (9.0-12.0)
[2023-05-20 16:17] LABS: ALBUMIN 2.9 G/DL (3.4-5.0); ALBUMIN/GLOBULIN RATIO 0.6 (1.1-1.5); ALKALINE PHOSPHATASE 115 IU/L (46-116); BLOOD UREA NITROGEN 49 MG/DL (7-18); CALCIUM 9.5 MG/DL (8.5-10.1); CHLORIDE 96 MMOL/L (99-107); CREATININE 6.09 MG/DL (0.40-0.90); PRE OP ALT 11 U/L (30-65); PRE OP ANION GAP 10 (8-16); PRE OP AST 22 U/L (10-37); PRE OP BILIRUB, TOTAL 0.5 MG/DL (0.0-1.0); PRE OP GLUCOSE 146 MG/DL (70-104); PRE OP POTASSIUM 4.2 MMOL/L (3.4-5.1); PRE OP SODIUM 136 MMOL/L (135-145); TOTAL CARBON DIOXIDE 29.6 MMOL/L (24-32); TOTAL PROTEIN 7.5 G/DL (6.4-8.2); eGFR 7 ML/MIN
[~2023-05-27] VITALS: Ht 167.6 cm; Wt 95.7 kg
[2023-05-27] VITALS (22 sets, daily range): BP systolic 110–155; BP diastolic 36–56
[~2023-05-27 08:22] MED LIST changes: +FURO40TA4 PO; +LIDOcaine 1% (10mg/ml) 2ml vial ONE; -NO HOME MEDS; +aspirin 325mg tablet PO ONE; +famotidine 20mg tablet PO ONE; +nitroPRUSSIDE (NIPRIDE) (200MCG/ML) 100ML Drip IV SCH; +ondansetron/PF 4mg/2ml inj IV PRN; +phenylephrine inj 50 MG in normal saline 250ml IV solN IV SCH; +protamine sulfate 10mg/ml inj. ONE; +ringers solution, lacted 1,000 ML IV SCH
[2023-05-27] MEDS ORDERED: normal saline 500ml IV soln 1,000 ML IV SCH (09:10)
[2023-05-27 09:45] LABS: ISTAT CREATININE 5.9 mg/dL (0.6-1.1); ISTAT IONIZED CALCIUM 1.19 mmol/L (1.03-1.32); ISTAT K 4.7 mmol/L (3.5-5.1); POC BUN/CREATININE RATIO 6.3 (6.6-38.0)
[2023-05-27] MEDS ORDERED: morphine 2 MG/ML inj. syringe IV PRN (11:55)
[2023-05-27] MEDS ORDERED: meperidine/PF 25mg/ml syringe IV PRN ×3 (11:55)
[2023-05-27] MEDS ORDERED: proCHLORperazine 10 MG/2 ml inj IV PRN ×2 (11:55→13:55)
[2023-05-27] MEDS ORDERED: morphine 4 MG/ML inj SYRINge IV PRN (11:55)
[2023-05-27] MEDS ORDERED: ringers solution, lacted 1,000 ML IV SCH (11:55)
[2023-05-27] MEDS ORDERED: ondansetron/PF 4mg/2ml inj IV PRN ×2 (11:55→13:55)
[2023-05-27] MEDS ORDERED: heparin 1,000 UNITS/NS 500ml 1,500 ML ONE (12:23)
[2023-05-27] MEDS ORDERED: iohexol 350MG/ML 100ml bottle IV ONE (12:23)
[2023-05-27] MEDS ORDERED: ceFAZolin 2gm in dextrose, iso 2,000 MG/50 ML BAG IV ONE (12:34)
[2023-05-27] MEDS ORDERED: ondansetron/PF 4mg/2ml inj ONE (12:34)
[2023-05-27] MEDS ORDERED: sevoflurane 250ml liquid IH ONE (12:34)
[2023-05-27] MEDS ORDERED: dexamethasone sod phosphate 4mg/ml inj. ONE (12:34)
[2023-05-27] MEDS ORDERED: midazolam 1 mg/ML 2ml injection ONE (12:37)
[2023-05-27] MEDS ORDERED: fentaNYL/PF 50MCG/1 ML 2ML syringe ONE (12:37)
[2023-05-27] MEDS ORDERED: heparin 1,000unit/ml 10ml vial 10 ML ONE (12:58)
[2023-05-27] MEDS ORDERED: ceFAZolin 1000mg inj ONE ×2 (12:58)
[2023-05-27] MEDS ORDERED: propofol inj 20 ML IV ONE (12:58)
[2023-05-27] MEDS ORDERED: hydrALAZINE 20mg/ml inj. IV PRN (13:55)
[2023-05-27] MEDS ORDERED: acetaminophen 325mg tablet PO PRN (13:55)
[2023-05-27] MEDS ORDERED: diphenhydrAMINE 25mg capsule PO PRN (13:55)
[2023-05-27] MEDS ORDERED: ALPRAZolam 0.25mg tablet PO PRN (13:55)
[2023-05-27] MEDS ORDERED: potassium Cl 20mEq/100mL bag 100 ML IV PRN (13:55)
[2023-05-27] MEDS ORDERED: magnesium 2GM in 50ml NS 50 ML IV PRN (13:55)
[2023-05-27] MEDS ORDERED: potassium Cl 20 mEq SR tablet PO PRN (13:55)
[2023-05-27] MEDS ORDERED: labetalol 20mg/4ml (5mg/ml) syringe IV PRN (13:55)
[2023-05-27] MEDS ORDERED: pantoprazole 40mg Tablet.DR PO PRN (13:55)
[2023-05-27] MEDS ORDERED: potassium Cl 40MEQ/1/2NS 520ml 520 ML IV PRN (13:55)
[2023-05-27] MEDS ORDERED: HYDROcodone/acetaminophen 5mg/325mg tablet PO PRN (13:55)
[2023-05-27] MEDS ORDERED: potassium CL 10mEq/100ml bag 100 ML IV PRN (13:55)
[2023-05-27] MEDS ORDERED: docusate sod 100mg capsule PO PRN (13:55)
[2023-05-27] MEDS ORDERED: potassium Cl 40MEQ/270ML bag 250 ML IV PRN (13:55)
[2023-05-27] MEDS ORDERED: magnesium 4gm in 100ml NS 100 ML IV PRN (13:55)
--- NOTE | 2023-05-27 14:02 | NUR ---
Received from OR via HOSPITAL BED TO RR 7, accompanied by Anesthesiologist DR CORNEJO and report given by Anesthesiolgist. PT PRESENTS WITH PIV 20G RIGHT HAND, 20G RIGHT AC, LR RUNNING AT 20 MLS/HR, SPO2 98% 10L MASK, BILATERAL DORSALIS PEDUS AND POSTERIOR TIBIALIS DOPPLERED, NEURO CHECK, VSS. EKG AT [facility]. Addendum: 05/27/23 at 1420 by Niya Bernardo RN, RN Amended: Links added.
--- NOTE | 2023-05-27 15:52 | NUR ---
Report called to receiving nurse HELEN MEDINA. Transferred via HOSPITAL BED TO ROOM 3014A. BE DIN LOW LOCKED POSTION WITH CALL LIGHT IN REACH, HELEN WAITING FOR TELE MONITOR. CHART GIVEN TO HELEN MEDINA. Belongings, 1 FRONT MANUEL CAT AND 1 PT BELONGING BAG TO [facility] 301 WITH PT. Special Issues communicated to receiving nurse. Addendum: 05/27/23 at 1601 by Niya Bernardo RN RN Amended: Links added.
[2023-05-27] MEDS: sod chloride 0.9% 10ml flush syringe IV SCH (16:00)
--- NOTE | 2023-05-27 16:41 | NUR ---
Received patient to room 3014A via bed accompanied by x1 staff and x2 patient's sons. Patient alert and oriented in no apparent acute distress. Denies pain. Patient with x2 groin site dressing CDI. Groin sites soft, no hematoma. Bilateral pedal pulses present with doppler. SCD's on. Post op vitals initiated. Patient on 2LNC. Son's brought in patient;s CPAP which is at bedside and x1 belongings bag in closet. Patient educated must lie flat until 1999. Oriented patient to room and call light. Call light placed within patient's reach. Bed low and locked.
[2023-05-27] MEDS: ceFAZolin 1GM/D5W- ADD-VANTAGE 50 ML IV SCH (16:57)
[2023-05-27] MEDS: normal saline 1000ml 1,000 ML IV SCH ×2 (16:58→23:55)
--- NOTE | 2023-05-27 18:30 | NUR ---
Patient in room PCU 3014. I have received report from ADAM Kenyon and had the opportunity to ask questions and assume patient care.
--- NOTE | 2023-05-27 18:36 | NUR ---
Problems reprioritized. Patient report given, questions answered & plan of care reviewed with ADAM morales.
[2023-05-27] MEDS: vancomycin/NS 1 GM ADD-VANTAGE 250 ML IV SCH (20:13)
[2023-05-27] MEDS: furosemide 40mg tablet PO SCH (20:13)
[2023-05-28] MEDS: sod chloride 0.9% 10ml flush syringe IV SCH ×2 (00:19→08:00)
[2023-05-28] MEDS: ceFAZolin 1GM/D5W- ADD-VANTAGE 50 ML IV SCH ×2 (00:19→09:17)
[2023-05-28 02:00] VITALS: BP 117/51
[2023-05-28 06:00] VITALS: BP 109/42
--- NOTE | 2023-05-28 06:16 | NUR ---
Problems reprioritized. Patient report given, questions answered & plan of care reviewed with ADAM Alex.
--- NOTE | 2023-05-28 06:37 | NUR ---
Patient in room PCU 3018I. I have received report from Anitra MEDINA and had the opportunity to ask questions and assume patient care. Pt is laying high fowlers in bed and is resting comfortaly. Pt on 2L NC, no s/s of distress. Pt declines c/o pain at this time. Pt states she is excited to go home. BLL, call light within reach, frequently used items in reach, frequent rounding, financial services manager socks on. Will continue to monitor.
[2023-05-28] MEDS: vancomycin/NS 1 GM ADD-VANTAGE 250 ML IV SCH (08:00)
[2023-05-28] MEDS ORDERED: aspirin 81mg tab.chew PO SCH (08:30)
[2023-05-28 08:44] LABS: BASOPHILS % (AUTO) 0.2 % (0-1); EOSINOPHILS % (AUTO) 0 % (0-6); HEMATOCRIT 38.9 % (35.0-45.0); LYMPHOCYTES # (AUTO) 0.4 X10'3 (1.1-4.8); LYMPHOCYTES % (AUTO) 9.4 % (21-51); MEAN CORPUSCULAR HEMOGLOBIN 34.5 PG (27.0-31.0); MEAN CORPUSCULAR HGB CONC 33.4 g/dL (33.0-36.5); MEAN CORPUSCULAR VOLUME 103.4 FL (78-98); MEAN PLATELET VOLUME 8.5 FL (7.4-10.4); MONOCYTES # (AUTO) 0.4 X10'3 (0-0.9); MONOCYTES % (AUTO) 9.2 % (2-12); NEUTROPHILS # (AUTO) 3.6 X10'3 (1.8-7.7); NEUTROPHILS % (AUTO) 81.2 % (42-75); PLATELET COUNT 195 X10'3 (140-440); RED BLOOD COUNT 3.76 X10'6 (4.20-5.60); RED CELL DISTRIBUTION WIDTH 14.1 % (11.5-14.5); WHITE BLOOD COUNT 4.5 X10'3 (4.5-11.0)
[2023-05-28] MEDS: furosemide 40mg tablet PO SCH (09:17)
[2023-05-28 09:20] LABS: ALANINE AMINOTRANSFERASE 9 U/L (12-78); ALBUMIN 2.8 G/DL (3.4-5.0); ALBUMIN/GLOBULIN RATIO 0.6 (1.1-1.5); ALKALINE PHOSPHATASE 77 IU/L (46-116); ANION GAP 15 (8-16); ASPARTATE AMINO TRANSFERASE 30 U/L (10-37); BILIRUBIN,TOTAL 0.4 MG/DL (0.1-1.0); BLOOD UREA NITROGEN 51 MG/DL (7-18); BUN/CREATININE RATIO 7.5 (10.0-20.0); CALCIUM 9.1 MG/DL (8.5-10.1); CHLORIDE 97 MMOL/L (99-107); CREATININE 6.81 MG/DL (0.40-0.90); GLUCOSE 136 MG/DL (70-104); MAGNESIUM 2.3 MG/DL (1.5-2.4); POTASSIUM 5.2 MMOL/L (3.5-5.1); SODIUM 133 MMOL/L (135-145); TOTAL CARBON DIOXIDE 21.3 MMOL/L (24-32); TOTAL PROTEIN 7.7 G/DL (6.4-8.2); eGFR 6 ML/MIN
[2023-05-28] MEDS ORDERED: ASPI81TA53 PO (09:52)
[2023-05-28] MEDS: normal saline 1000ml 1,000 ML IV SCH (09:55)
[2023-05-28 11:00] VITALS: BP 120/44
--- NOTE | 2023-05-28 14:04 | NUR ---
Pt DC'd to personal vehicle, Son is driving. PIV to RFA & R hand removed. VSS, Pt afebrile, no issues with medications. Pt on 2L NC, no s/s of distress. Pt on home O2. Pt declines c/o pain. Discharge education provided. All discharge questions answered. All belongings left with Pt.
== END 2023-05-28 14:00 | disposition home or self-care (01) | DRG 266 ==
LOC: PAS IN 08:22 → PCU 3S 16:04
PROVIDERS: ADMIT Internal Medicine Cardiovascular Disease; ATTEND Internal Medicine Cardiovascular Disease
PROC: B41D1ZZ Fluoroscopy of Aorta and Bilateral Lower Extremity Arteries using Low Osmolar Contrast (ICD-10-PCS; 2023-05-27)
PROC: 02RF38Z Replacement of Aortic Valve with Zooplastic Tissue, Percutaneous Approach (ICD-10-PCS; principal; 2023-05-27 12:34)
DX: I35.0 Nonrheumatic aortic (valve) stenosis (principal); Z00.6 Encounter for examination for normal comparison and control in clinical research program; N18.6 End stage renal disease; I50.32 Chronic diastolic (congestive) heart failure; I31.39 Other pericardial effusion (noninflammatory); G47.33 Obstructive sleep apnea (adult) (pediatric); E11.22 Type 2 diabetes mellitus with diabetic chronic kidney disease; I49.5 Sick sinus syndrome; I48.91 Unspecified atrial fibrillation; J44.9 Chronic obstructive pulmonary disease, unspecified; Z86.73 Personal history of transient ischemic attack (TIA), and cerebral infarction without residual deficits; Z95.0 Presence of cardiac pacemaker; Z79.899 Other long term (current) drug therapy; Z99.2 Dependence on renal dialysis; I27.20 Pulmonary hypertension, unspecified
CPT/HCPCS: 33361; 36415; 71045; 71046; 76937; 80047; 80053; 83735; 83880; 85025; 85347; 85610; 85730; 86885; 86900; 86901; 86920; 87081; 93005; 93308; A4615; A4618; A6258; A6449; C1725; C1756; C1760; C1769; C1894; G0378; J0690; J1100; J1644; J2250; J2370; J2405; J2704; J2720; J3010; J3370; J3490; J7030; J7040; J7050; J7120; Q9967

== ENCOUNTER 2023-09-27 13:47 | Emergency (ER) | payer MEDICARE, BC ==
[~2023-09-27] VITALS: Ht 167.6 cm; Wt 95.9 kg
[~2023-09-27 13:47] MED LIST changes: +ASPI81TA53 PO; -LIDOcaine 1% (10mg/ml) 2ml vial ONE; -aspirin 325mg tablet PO ONE; -famotidine 20mg tablet PO ONE; -nitroPRUSSIDE (NIPRIDE) (200MCG/ML) 100ML Drip IV SCH; -ondansetron/PF 4mg/2ml inj IV PRN; -phenylephrine inj 50 MG in normal saline 250ml IV solN IV SCH; -protamine sulfate 10mg/ml inj. ONE; -ringers solution, lacted 1,000 ML IV SCH
[2023-09-27 14:57] LABS: BASOPHILS % (AUTO) 0.3 % (0-1); EOSINOPHILS # (AUTO) 0.1 X10'3 (0-0.9); EOSINOPHILS % (AUTO) 0.8 % (0-6); HEMATOCRIT 35.1 % (35.0-45.0); HEMOGLOBIN 11.3 g/dl (12.0-16.0); LYMPHOCYTES # (AUTO) 0.7 X10'3 (1.1-4.8); LYMPHOCYTES % (AUTO) 8.8 % (21-51); MEAN CORPUSCULAR HEMOGLOBIN 34.5 PG (27.0-31.0); MEAN CORPUSCULAR HGB CONC 32.2 g/dL (33.0-36.5); MEAN CORPUSCULAR VOLUME 107.1 FL (78-98); MEAN PLATELET VOLUME 8.1 FL (7.4-10.4); MONOCYTES # (AUTO) 0.5 X10'3 (0-0.9); MONOCYTES % (AUTO) 6.7 % (2-12); NEUTROPHILS # (AUTO) 6.3 X10'3 (1.8-7.7); NEUTROPHILS % (AUTO) 83.4 % (42-75); PLATELET COUNT 165 X10'3 (140-440); RED BLOOD COUNT 3.28 X10'6 (4.20-5.60); RED CELL DISTRIBUTION WIDTH 14.8 % (11.5-14.5); WHITE BLOOD COUNT 7.5 X10'3 (4.5-11.0)
--- NOTE | 2023-09-27 15:03 | NUR ---
PER PT ALL HEALTH INFO MAY BE SHARED WITH HER DAUGHTER NANCY [phone] WHO LIVES IN [place]. PER PT IF DC HER DAUGHTER CHARLENE [phone] WILL BE TRANSPORTING HER HOME. RN UPDATED NANCY AND PER NANCY SHE WILL NOTIFY HER SISTER CHARLENE AND IF CHARLENE IS NOT REACHABLE D/T BAD CELL SERVICE CALL HER AND SHE WILL REACH HER.
[2023-09-27 15:12] LABS: ALANINE AMINOTRANSFERASE 15 U/L (12-78); ALBUMIN 2.8 G/DL (3.4-5.0); ALBUMIN/GLOBULIN RATIO 0.6 (1.1-1.5); ALKALINE PHOSPHATASE 115 IU/L (46-116); ANION GAP 6 (8-16); ASPARTATE AMINO TRANSFERASE 28 U/L (10-37); BILIRUBIN,TOTAL 0.6 MG/DL (0.1-1.0); BLOOD UREA NITROGEN 16 MG/DL (7-18); BUN/CREATININE RATIO 3.6 (10.0-20.0); CHLORIDE 98 MMOL/L (99-107); GLUCOSE 135 MG/DL (70-104); SODIUM 133 MMOL/L (135-145); TOTAL CARBON DIOXIDE 29.4 MMOL/L (24-32); TOTAL PROTEIN 7.2 G/DL (6.4-8.2); eCRCL 9 ML/MIN; eGFR 10 ML/MIN
[2023-09-27 15:45] LABS: PRO BRAIN NATRIURETIC PEPTIDE > 30000 PG/ML (0-450)
--- NOTE | 2023-09-27 16:01 | NUR ---
Ephraim celaya in EDM - 09/27/23 at 1602 by JOSÉ LUIS PT REQ MEDICAL RECORDS PT DC. PT SIGNED RELEASE FORM/FORM PLACED IN CHART/XRAY REPORT PRINTED AND PROVIDED TO PT.
--- NOTE | 2023-09-27 16:02 | NUR ---
CORRECTION TO LAST NOTE. NOTE MADE IN ERROR ON THE WRONG PT.
--- NOTE | 2023-09-27 16:40 | NUR ---
RN CALLED PT DAUGHTER CHARLENE AND NOTIFIED HER PT IS BEING DC. PER CHARLENE PT SHOULD HAVE HER WHEELCHAIR. RN NOTIFIED HER THAT PT WAS BROUGHT BY EMS AND THE WHEELCHAIR WOULD NEED TO BE P/U FROM [facility]. SHE VERBALIZED UNDERSTANDING AND STATED SHE SHOULD ARRIVE WITHIN 15 MINS.
--- NOTE | 2023-09-27 16:49 | NUR ---
PER PT HER PORTABLE O2 TANK IS STILL AT [facility]. RN CALLED HER DAUGHTER CHARLENE AND NOTIFIED HER AND SHE WILL GO PICK IT UP P/T COMING TO THE HOSPITAL.
[2023-09-27 18:08] VITALS: BP 132/66; PULSE 70; RESP 22; TEMP 98.7; O2SAT 99
== END 2023-09-27 18:14 | disposition home or self-care (01) ==
LOC: ER 13:48
DX: I95.3 Hypotension of hemodialysis (principal); J44.9 Chronic obstructive pulmonary disease, unspecified; Z79.899 Other long term (current) drug therapy
CPT/HCPCS: 36415; 71045; 80053; 82948; 83880; 84484; 85025; 93005; 99285